=== PATIENT | female | born 1925 | race Caucasian/White ===

== ENCOUNTER 2016-10-11 16:47 | Emergency (ER) | payer OTHER, BC ==
[2016-10-11 17:08] VITALS: TEMP 98.4; BMI 27.4
--- NOTE | 2016-10-11 17:10 | PDOC ---
History of Present Illness - General History Source: Patient, Alf Records - History of Present Illness Initial Comments: 10/11/16 17:23 The patient is a 89 year old female, from assisted living, with a significant past medical history of dementia, DM, HTN, frequent UTIs who presents to the ED s/p fall. As per usp, the patient was walking with a rolling walker and fell backwards on the right side of back of her head. Denies loss of consciousness. Patient now reports a bump to the right side of the back of her head with a slight headache. Denies nausea or vomiting. Denies vision changes. Denies any other symptoms. <Abeba Queen - Last Filed: 10/11/16 18:51> <Nickolas Perla - Last Filed: 10/11/16 18:55> - General Chief Complaint: Injury Stated Complaint: FALL Past History <Abeba Queen - Last Filed: 10/11/16 18:51> - Past Medical History Anemia: No Asthma: No Cancer: Yes (left breast) Cardiac Disorders: Yes (bypass sx) CVA: No COPD: No CHF: No Dementia: No Diabetes: Yes GI Disorders: No Disorders: No HTN: Yes Hypercholesterolemia: Yes Liver Disease: No Seizures: No Thyroid Disease: No - Surgical History Abdominal Surgery: No Appendectomy: No Cardiac Surgery: Yes (BYPASS) Cholecystectomy: No Lung Surgery: No Neurologic Surgery: No Orthopedic Surgery: Yes (L KNEE REPLACEMENT) - Psycho/Social/Smoking Cessation Hx Anxiety: No Suicidal Ideation: No Smoking Status: No Smoking History: Never smoked Have you smoked in the past 12 months: No Number of Cigarettes Smoked Daily: 0 Information on smoking cessation initiated: No Hx Alcohol Use: No Drug/Substance Use Hx: No Substance Use Type: None Hx Substance Use Treatment: No <Nickolas Perla - Last Filed: 10/11/16 18:55> - Past Medical History Allergies/Adverse Reactions: Allergies Allergy/AdvReac Type Severity Reaction Status Date / Time No Known Drug Allergies Allergy Verified 10/11/16 17:00 Home Medications: Ambulatory Orders Aspirin [ASA -] 81 mg PO DAILY 01/15/15 Atorvastatin Ca [Lipitor -] 20 mg PO HS 01/15/15 Calcium Carbonate [Calcium] 250 mg PO BID 01/15/15 Escitalopram Oxalate [Lexapro -] 10 mg PO DAILY 01/15/15 Hydralazine HCl 100 mg PO BID 01/15/15 Insulin (Novolog) [Novolog -] 5 units SQ TID 01/15/15 Nebivolol HCl [Bystolic] 5 mg PO DAILY 01/15/15 Tamoxifen Citrate 20 mg PO DAILY 01/15/15 Furosemide 20 mg PO DAILY 04/26/15 Hydroxyzine HCl [Atarax -] 12.5 mg PO BID 04/26/15 Acetaminophen [Tylenol] 650 mg PO DAILY PRN 10/11/16 B Complex with Vitamin C [Super B Complex-Vitamin C] 1 each PO DAILY 10/11/16 Buspirone HCl [Buspar -] 5 mg PO BID 10/11/16 Divalproex [Depakote -] 250 mg PO BID 10/11/16 Ergocalciferol (Vitamin D2) [Vitamin D2] 50,000 unit PO WEEKLY 10/11/16 Guaifenesin [Robafen] 10 ml PO Q4H PRN 10/11/16 Insulin Glargine,Hum.rec.anlog [Toujeo Solostar] 30 unit SQ AM 10/11/16 Review of Systems - Review of Systems Able to Perform ROS?: Yes Comments:: 10/11/16 17:24 GENERAL/CONSTITUTIONAL: + fall. No fever or chills. No weakness. HEAD, EYES, EARS, NOSE AND THROAT: + hematoma on head. No change in vision. No ear pain or discharge. No sore throat. CARDIOVASCULAR: No chest pain or shortness of breath. RESPIRATORY: No cough, wheezing, or hemoptysis. GASTROINTESTINAL: No nausea, vomiting, diarrhea or constipation. GENITOURINARY: No dysuria, frequency, or change in urination. MUSCULOSKELETAL: No joint or muscle swelling or pain. No neck or back pain. SKIN: No rash NEUROLOGIC:+ headache No vertigo, loss of consciousness, or change in strength/ sensation. ENDOCRINE: No increased thirst. No abnormal weight change. HEMATOLOGIC/LYMPHATIC: No anemia, easy bleeding, or history of blood clots. ALLERGIC/IMMUNOLOGIC: No hives or skin allergy. All Other Systems: Reviewed and Negative <Abeba Queen - Last Filed: 10/11/16 18:51> *Physical Exam - Vital Signs Last Vital Signs Temp Pulse Resp BP Pulse Ox 98.4 F 50 L 20 153/66 99 10/11/16 17:01 10/11/16 17:01 10/11/16 17:01 10/11/16 17:01 10/11/16 17:01 - Physical Exam Comments: 10/11/16 17:39 GENERAL: Awake, alert, and fully oriented, in no acute distress HEAD:+ hematoma on the right side of the occipital area EYES: PERRLA, EOMI, sclera anicteric, conjunctiva clear ENT: Auricles normal inspection, hearing grossly normal, nares patent, oropharynx clear without exudates. Moist mucosa NECK: Normal ROM, supple, no lymphadenopathy, JVD, or masses LUNGS: Breath sounds equal, clear to auscultation bilaterally. No wheezes, and no crackles HEART: Regular rate and rhythm, normal S1 and S2, no murmurs, rubs or gallops ABDOMEN: Soft, nontender, normoactive bowel sounds. No guarding, no rebound. No masses EXTREMITIES: Normal range of motion, no edema. No clubbing or cyanosis. No cords, erythema, or tenderness NEUROLOGICAL: Cranial nerves II through XII grossly intact. Normal speech, normal gait SKIN: Warm, Dry, normal turgor, no rashes or lesions noted. <Abeba Queen - Last Filed: 10/11/16 18:51> - Vital Signs Last Vital Signs Temp Pulse Resp BP Pulse Ox 98.4 F 50 L 20 153/66 99 10/11/16 17:01 10/11/16 17:01 10/11/16 17:01 10/11/16 17:01 10/11/16 17:01 <Nickolas Perla - Last Filed: 10/11/16 18:55> ED Treatment Course - RADIOLOGY Radiograph Interpretation: 10/11/16 18:52 EXAM: CT HEAD WITHOUT CONTRAST No acute brain parenchymal abnormality. No hemorrhage, mass or acute territorial infarct. Atrophy and chronic small vessel ischemic changes. Hematoma right parieto-occipital scalp. No skull fracture. Clear visualized paranasal sinuses. Visualized mastoid air cells clear. Reported by: Imaging contact worker lithography, Lindy Vo M.D <Abeba Quene - Last Filed: 10/11/16 18:51> *DC/Admit/Observation/Transfer - Attestations Scribe Attestion: 03/19/17 17:24 Documentation prepared by Abeba Queen, acting as medical chief technician for Nickolas Perla MD <Abeba Queen - Last Filed: 10/11/16 18:51> - Discharge Dispostion Admit: No - Attestations Physician Attestion: 10/11/16 17:10 I, Dr. Nickolas Perla, attest that this document has been prepared under my direction and personally reviewed by me in its entirety. I further attest, that it accurately reflects all work, treatment, procedures and medical decision -making performed by me. <Nickolas Perla - Last Filed: 10/11/16 18:55> Diagnosis at time of Disposition: Hematoma of scalp Qualifiers: Encounter type: initial encounter Qualified Code(s): S00.03XA - Contusion of scalp, initial encounter Accident due to mechanical fall without injury Qualifiers: Encounter type: initial encounter Qualified Code(s): W19.XXXA - Unspecified fall, initial encounter - Discharge Dispostion Disposition: HOME Condition at time of disposition: Good - Referrals Referrals: Elina Arreaga [Primary Care Provider] - - Patient Instructions Printed Discharge Instructions: DI for Closed Head Injury Additional Instructions: Jessica- Your CT is great. Tylenol is best for pain. An icepack will help too. Follow up with your doctor next week. Return to us if worse or new symptoms occur. Best- Dr. Nickolas Perla
[2016-10-11 20:59] VITALS: BP 151/64; PULSE 80
== END 2016-10-11 20:58 | disposition home or self-care (01) ==
LOC: JER 16:47
DX: S00.03XA Contusion of scalp, initial encounter (principal); I25.10 Atherosclerotic heart disease of native coronary artery without angina pectoris; I10 Essential (primary) hypertension; Z95.1 Presence of aortocoronary bypass graft; E11.9 Type 2 diabetes mellitus without complications; Z79.4 Long term (current) use of insulin; E78.00 Pure hypercholesterolemia, unspecified; W18.39XA Other fall on same level, initial encounter; Y93.01 Activity, walking, marching and hiking; Y92.128 Other place in nursing home as the place of occurrence of the external cause
CPT/HCPCS: 70450-TC; 99282-25

== ENCOUNTER 2017-02-11 08:36 | Emergency (ER) | payer OTHER, BC ==
[2017-02-11 09:22] VITALS: BMI 29.2
--- NOTE | 2017-02-11 09:35 | PDOC ---
History of Present Illness - General Chief Complaint: Injury Stated Complaint: FALL Time Seen by Provider: 02/11/17 08:50 - History of Present Illness Initial Comments: 02/11/17 10:20 Ms. Reid is an 89 yo Female with a significant past medical history of Angina with bypass, HTN, hyperlipidemia, DMII, Chronic UTI, who presents to the emergency department from care facility after unwitnessed fall. The patient denies chest pain, shortness of breath, headache and dizziness. Denies fever, chills, nausea, vomit, diarrhea and constipation. Denies dysuria, frequency, urgency and hematuria. Allergies: NKDA Past surgical history: Cardiac bypass for angina Social history: Denies EtOH / smoking PMD - Elina Androne 02/11/17 11:23 02/11/17 12:23 02/11/17 12:27 02/11/17 12:31 Past History - Past Medical History Allergies/Adverse Reactions: Allergies Allergy/AdvReac Type Severity Reaction Status Date / Time No Known Drug Allergies Allergy Verified 02/11/17 09:00 Home Medications: Ambulatory Orders Aspirin [ASA -] 81 mg PO DAILY 01/15/15 Atorvastatin Ca [Lipitor -] 20 mg PO HS 01/15/15 Calcium Carbonate [Calcium] 250 mg PO BID 01/15/15 Escitalopram Oxalate [Lexapro -] 10 mg PO DAILY 01/15/15 Hydralazine HCl 100 mg PO BID 01/15/15 Insulin (Novolog) [Novolog -] 5 units SQ TID 01/15/15 Nebivolol HCl [Bystolic] 5 mg PO DAILY 01/15/15 Tamoxifen Citrate 20 mg PO DAILY 01/15/15 Furosemide 20 mg PO DAILY 04/26/15 Hydroxyzine HCl [Atarax -] 12.5 mg PO BID 04/26/15 Acetaminophen [Tylenol] 650 mg PO DAILY PRN 10/11/16 B Complex with Vitamin C [Super B Complex-Vitamin C] 1 each PO DAILY 10/11/16 Buspirone HCl [Buspar -] 5 mg PO BID 10/11/16 Divalproex [Depakote -] 250 mg PO BID 10/11/16 Ergocalciferol (Vitamin D2) [Vitamin D2] 50,000 unit PO WEEKLY 10/11/16 Guaifenesin [Robafen] 10 ml PO Q4H PRN 10/11/16 Insulin Glargine,Hum.rec.anlog [Parker Rodriguez] 30 unit SQ AM 10/11/16 Anemia: No Asthma: No Cancer: Yes (left breast) Cardiac Disorders: Yes (bypass sx) CVA: No COPD: No CHF: No Dementia: No Diabetes: Yes GI Disorders: No Disorders: No HTN: Yes Hypercholesterolemia: Yes Liver Disease: No Seizures: No Thyroid Disease: No - Surgical History Abdominal Surgery: No Appendectomy: No Cardiac Surgery: Yes (BYPASS) Cholecystectomy: No Lung Surgery: No Neurologic Surgery: No Orthopedic Surgery: Yes (L KNEE REPLACEMENT) - Psycho/Social/Smoking Cessation Hx Anxiety: No Suicidal Ideation: No Smoking Status: No Smoking History: Never smoked Have you smoked in the past 12 months: No Number of Cigarettes Smoked Daily: 0 Hx Alcohol Use: No Drug/Substance Use Hx: No Substance Use Type: None Hx Substance Use Treatment: No Review of Systems - Review of Systems Comments:: 02/11/17 10:21 GENERAL/CONSTITUTIONAL: +Mildly confused at baseline (per son). No fever or chills. No weakness. HEAD, EYES, EARS, NOSE AND THROAT: +Pain to back of head bilaterally and neck. No change in vision. No ear pain or discharge. No sore throat. CARDIOVASCULAR: No chest pain or shortness of breath RESPIRATORY: No cough, wheezing, or hemoptysis. GASTROINTESTINAL: No nausea, vomiting, diarrhea or constipation. GENITOURINARY: No dysuria, frequency, or change in urination. MUSCULOSKELETAL: No joint or muscle swelling or pain. No neck or back pain. SKIN: No rash NEUROLOGIC: + headache, no vertigo, loss of consciousness, or change in strength /sensation. ENDOCRINE: No increased thirst. No abnormal weight change HEMATOLOGIC/LYMPHATIC: No anemia, easy bleeding, or history of blood clots. ALLERGIC/IMMUNOLOGIC: No hives or skin allergy. 02/11/17 12:27 *Physical Exam - Physical Exam Comments: 02/11/17 10:21 GENERAL: +Mildly obtunded. Reported to be at baseline by son. Awake, alert, and fully oriented, in no acute distress HEAD: +Some tenderness at back of head to palpation. No signs of trauma, normocephalic, atraumatic EYES: PERRLA, EOMI, sclera anicteric, conjunctiva clear ENT: Auricles normal inspection, hearing grossly normal, nares patent, oropharynx clear without exudates. Moist mucosa NECK: +Tender to palpation, Normal ROM, supple, no lymphadenopathy, JVD, or masses LUNGS: No distress, speaks full sentences, clear to auscultation bilaterally HEART: Regular rate and rhythm, normal S1 and S2, no murmurs, rubs or gallops, peripheral pulses normal and equal bilaterally. ABDOMEN: Soft, nontender, normoactive bowel sounds. No guarding, no rebound. No masses EXTREMITIES: Normal inspection, Normal range of motion, no edema. No clubbing or cyanosis. NEUROLOGICAL: Cranial nerves II through XII grossly intact. Normal speech, normal gait, no focal sensorimotor deficits SKIN: Warm, Dry, normal turgor, no rashes or lesions noted. 02/11/17 12:29 ED Treatment Course - LABORATORY CBC & Chemistry Diagram: 02/11/17 11:03 02/11/17 11:03 Medical Decision Making - Medical Decision Making 02/11/17 12:31 Ms. Reid presented to ER from care facility after she was found down by staff. She reports pain to back of head and neck. Obtunded but said to be at baseline by son. Ordered complete cardiac workup as fall was not witnessed, and Head/Neck CT. CT read: "Acute fracture involving the left superior articular facet of C2, left pars interarticularis, body of C2 with disruption of posterior cortex. Intact bony surface of the left transverse foramen. Fracture of the right lamina of C2 with mild displacement is seen. The predental dental space space is not widened. Intact odontoid process. Calcified transverse ligament. No subluxation is seen. Normal spinolaminar line. Symmetrical articulation of atlantoaxial and occipito atlantal joints. Prominent posterior degenerative osteophytes at C5-C6 causing moderately severe central spinal canal stenosis. Multilevel chronic degenerative discogenic disease" Consulted Neurosurgery at [facility], will transfer ER to ER for eval and surgery. Dr. Jordan accepted, Neurosurgery Dr. Ephraim Mena. 02/11/17 12:38 02/11/17 12:52 *DC/Admit/Observation/Transfer Diagnosis at time of Disposition: Fx C2 vertebra-closed Qualifiers: Encounter type: initial encounter Fracture morphology: unspecified fracture morphology Fracture alignment: displaced Qualified Code(s): S12.100A - Unspecified displaced fracture of second cervical vertebra, initial encounter for closed fracture - Discharge Dispostion Disposition: TRANSFER ACUTE CARE/OTHER HOSP Condition at time of disposition: Stable - Attestations Physician Attestion: I, Dr. Chapincito Avina, attest that this document has been prepared under my direction and personally reviewed by me in its entirety. I further attest, that it accurately reflects all work, treatment, procedures and medical decision -making performed by me.
--- NOTE | 2017-02-11 10:57 | PDOC ---
Attending Attestation - Resident Resident Name: Chapincito Avina - HPI HPI: 02/11/17 10:52 Pt presents to the ED after unwitnessed fall. Patient has a history of dementia and is confused at baseline. Unclear whether she had a mechanical trip and fall or syncopized. multiple risk factors for cardiovascular disease. - Physicial Exam PE: 02/11/17 10:54 Alert, NAD, answering questions but confused. + ecchymosis to occipital area, otherwise appears well. - Medical Decision Making 02/11/17 10:55 Pt presents to the ED after unwitnessed fall. Will check CT head and C spine to rule out intracranial or cervical spinal injury. EKG shows no arrythmia or ischemia. Will check labs and cardiac enzymes, admit for syncope work up.
[2017-02-11 11:30] LABS: MCH 33.7 pg (25.7-33.7); MEAN PLT VOLUME 8.2 fl (7.5-11.1); PLATELET COUNT 191 K/MM3 (134-434); RDW 13.7 % (11.6-15.6); WHITE BLOOD COUNT 10.5 K/mm3 (4.0-10.0)
[2017-02-11 11:33] LABS: URINE APPEARANCE SLCLOUDY; URINE BILIRUBIN NEGATIVE (NEGATIVE); URINE BLOOD NEGATIVE (NEGATIVE); URINE COLOR LTYELLOW; URINE GLUCOSE (UA) NEGATIVE (NEGATIVE); URINE KETONE NEGATIVE (NEGATIVE); URINE LEUK ESTERASE NEGATIVE (NEGATIVE); URINE NITRITE NEGATIVE (NEGATIVE); URINE PROTEIN NEGATIVE (NEGATIVE); URINE UROBILINOGEN NEGATIVE mg/dL (0.2-1.0)
[2017-02-11 12:59] VITALS: TEMP 98.4
[2017-02-11 13:08] VITALS: BP 109/52; PULSE 58
--- NOTE | 2017-02-11 16:29 | EKG ---
Test Reason : Blood Pressure : / mmHG Vent. Rate : 054 BPM Atrial Rate : 054 BPM P-R Int : 142 ms QRS Dur : 118 ms QT Int : 492 ms P-R-T Axes : 054 -62 047 degrees QTc Int : 466 ms POOR DATA QUALITY, INTERPRETATION MAY BE ADVERSELY AFFECTED SINUS BRADYCARDIA RIGHT BUNDLE BRANCH BLOCK LEFT ANTERIOR FASCICULAR BLOCK BIFASCICULAR BLOCK MODERATE VOLTAGE CRITERIA FOR LVH, MAY BE NORMAL VARIANT ABNORMAL ECG WHEN COMPARED WITH ECG OF 26-APR-2015 01:44, RIGHT BUNDLE BRANCH BLOCK IS NOW PRESENT Confirmed by GIOVANI MARQUEZ MD ([id number]) on 02/11/2017 4:28:54 PM Referred By: Confirmed By:GIOVANI MARQUEZ MD
== END 2017-02-11 13:08 | disposition short-term general hospital (02) ==
LOC: JER 08:36
DX: S12.190A Other displaced fracture of second cervical vertebra, initial encounter for closed fracture (principal); W18.39XA Other fall on same level, initial encounter; Y93.89 Activity, other specified; Y92.129 Unspecified place in nursing home as the place of occurrence of the external cause; Z95.1 Presence of aortocoronary bypass graft; I10 Essential (primary) hypertension; E78.00 Pure hypercholesterolemia, unspecified; E11.9 Type 2 diabetes mellitus without complications; Z79.4 Long term (current) use of insulin; Z85.3 Personal history of malignant neoplasm of breast
CPT/HCPCS: 36415; 70450-TC; 72125-TC; 81003; 85027; 93005; 93010; 99283-25

== ENCOUNTER 2017-03-17 14:33 | Inpatient (IN) | payer OTHER, BC ==
--- NOTE | 2017-03-17 14:39 | PDOC ---
History of Present Illness - General Stated Complaint: ABD PAIN Time Seen by Provider: 03/17/17 14:38 - History of Present Illness Initial Comments: She is an 89 year old Female with PMH of [place] (8-0 years prior with CABG x2), HTN , hyperlipidemia, DMII, Chronic UTIs, hearing deficit, sight defecit, and recent neck fracture [facility] for decreased appetite, nausea, and vomiting of two days duration in the setting of Valcyclovir initiation for shingles. Both the patient and the daughter at bedside admit that her rash on her back and her stomach are improving in terms of appearance and symptomatology. She saw both her PCP, Kaye George, and her neurologist, Dr. Espinosa, who all feel she needs to be admitted for IV antiviral therapy for her inability to tolerate oral Valtrex. She is incontinent of urine at baseline. The family and patient are also concerned about the follow up for her neck fracture (currently in a c-spine collar) because they had no concrete ortho/ neuro follow up and their care at [facility]. They would like to take the patietn back to her [facility] living facility. Denies fevers, chills, chest pain, palpitations, diarrhea, urinary symptoms, or other sick symptoms. 03/17/17 14:44 Past History - Past Medical History Allergies/Adverse Reactions: Allergies Allergy/AdvReac Type Severity Reaction Status Date / Time No Known Drug Allergies Allergy Verified 02/11/17 09:00 Home Medications: Ambulatory Orders Aspirin [ASA -] 81 mg PO DAILY 01/15/15 Atorvastatin Ca [Lipitor -] 20 mg PO HS 01/15/15 Calcium Carbonate [Calcium] 250 mg PO BID 01/15/15 Escitalopram Oxalate [Lexapro -] 10 mg PO DAILY 01/15/15 Hydralazine HCl 100 mg PO BID 01/15/15 Insulin (Novolog) [Novolog -] 5 units SQ TID 01/15/15 Nebivolol HCl [Bystolic] 5 mg PO DAILY 01/15/15 Tamoxifen Citrate 20 mg PO DAILY 01/15/15 Furosemide 20 mg PO DAILY 04/26/15 Hydroxyzine HCl [Atarax -] 12.5 mg PO BID 04/26/15 Acetaminophen [Tylenol] 650 mg PO DAILY PRN 03/19/17 B Complex with Vitamin C [Super B Complex-Vitamin C] 1 each PO DAILY 10/11/16 Buspirone HCl [Buspar -] 5 mg PO BID 10/11/16 Divalproex [Depakote -] 250 mg PO BID 10/11/16 Ergocalciferol (Vitamin D2) [Vitamin D2] 50,000 unit PO WEEKLY 10/11/16 Guaifenesin [Robafen] 10 ml PO Q4H PRN 10/11/16 Insulin Glargine,Hum.rec.anlog [Toujeo Solostar] 30 unit SQ AM 10/11/16 Anemia: No Asthma: No Cancer: Yes (left breast) Cardiac Disorders: Yes (bypass sx) CVA: No COPD: No CHF: No Dementia: No Diabetes: Yes GI Disorders: No Disorders: No HTN: Yes Hypercholesterolemia: Yes Liver Disease: No Seizures: No Thyroid Disease: No - Surgical History Abdominal Surgery: No Appendectomy: No Cardiac Surgery: Yes (BYPASS) Cholecystectomy: No Lung Surgery: No Neurologic Surgery: No Orthopedic Surgery: Yes (L KNEE REPLACEMENT) - Psycho/Social/Smoking Cessation Hx Anxiety: No Suicidal Ideation: No Smoking Status: No Smoking History: Never smoked Have you smoked in the past 12 months: No Number of Cigarettes Smoked Daily: 0 Hx Alcohol Use: No Drug/Substance Use Hx: No Substance Use Type: None Hx Substance Use Treatment: No Review of Systems - Review of Systems Constitutional: No: Chills, Fever, Loss of Appetite, Night Sweats HEENTM: No: Blurred Vision, Recent change in vision Respiratory: No: Cough, Shortness of Breath Cardiac (ROS): No: Chest Pain, Edema ABD/GI: Yes: Nausea, Vomiting. No: Diarrhea : Yes: Frequency, Incontinence. No: Dysuria Integumentary: Yes: Change in Color, Erythema, Lesions Neurological: No: Headache *Physical Exam - Physical Exam General Appearance: Yes: Nourished, Appropriately Dressed. No: Apparent Distress HEENT: positive: EOMI, MERY, Normal Voice, Pharynx Normal, Other (Mucous membranes moist) Neck: positive: Trachea midline, Normal Thyroid, Supple, Other (Patient in c- collar but removed fro c-spine exam.). negative: Tender, Rigid Respiratory/Chest: positive: Lungs Clear, Normal Breath Sounds. negative: Chest Tender, Respiratory Distress Cardiovascular: positive: Regular Rhythm, Regular Rate. negative: S1, S2, Edema , Murmur Gastrointestinal/Abdominal: positive: Normal Bowel Sounds, Other (healing vesiclar rash across right side of stomach not crossing the midline.). negative : Tender Musculoskeletal: positive: Other (Healing vesicular lesions across right side of lower thoracic back not crossing midline.). negative: Normal Inspection Extremity: positive: Normal Inspection. negative: Tender, Coldness Integumentary: positive: Normal Color, Dry, Warm Neurologic: positive: Alert, Normal Mood/Affect, Motor Strength 5/5 Medical Decision Making - Medical Decision Making 89 year old female with significant cardiac history presenting for inability to tolerate PO Valtrex for 2 days of shingles. VSS but per her PCP, Dr. George we will admit the patient given her age and comorbidities for IV antibiotics. She also needs follow up for recent her neck fracture. 03/17/17 15:47 *DC/Admit/Observation/Transfer Diagnosis at time of Disposition: Zoster, Nausea & vomiting - Discharge Dispostion Condition at time of disposition: Stable Admit: Yes - Attestations Physician Attestion: Attested by Dr. Hernandez @ 03/17/17 15:53 03/17/17 15:57
[2017-03-17 15:33] VITALS: BMI 28.1
[2017-03-17] MEDS ORDERED: ACYCLOVIR 500 MG (50MG/ML) VIAL IVPUSH ONE (16:21)
[2017-03-17 16:31] LABS: BASOPHIL 0.4 % (0-2.0); EOSINOPHIL 1.9 % (0-4.5); MCH 34.4 pg (25.7-33.7); MCHC 33.9 g/dl (32.0-36.0); MEAN CELL VOLUME 101.5 fl (80-96); MEAN PLT VOLUME 8.2 fl (7.5-11.1); NEUTROPHILS 62.2 % (42.8-82.8); PLATELET COUNT 176 K/MM3 (134-434); RDW 13.8 % (11.6-15.6); WHITE BLOOD COUNT 5.7 K/mm3 (4.0-10.0)
[2017-03-17 16:52] LABS: ALBUMIN 2.6 g/dl (3.4-5.0); ANION GAP 8 (8-16); BILIRUBIN,TOTAL 0.4 mg/dL (0.2-1.0); CALCIUM 8.3 mg/dL (8.5-10.1); CO2 28 mmol/L (21-32); CREATININE 1.3 mg/dL (0.55-1.02); GLUCOSE,RANDOM 177 mg/dL (74-106); MAGNESIUM 2.4 mg/dL (1.8-2.4); PHOSPHOROUS 3.5 mg/dL (2.5-4.9); SGOT/AST 19 U/L (15-37); SGPT/ALT 18 U/L (12-78); TOT PROT 6.1 g/dl (6.4-8.2)
[2017-03-17 16:53] LABS: ALK PHOS 54 U/L (45-117)
[2017-03-17] MEDS ORDERED: DEXTROSE 5% IVPB SCH (17:15)
[2017-03-17] MEDS ORDERED: ACYCLOVIR IVPB SCH (17:15)
[2017-03-17] MEDS ORDERED: WATER IVPB SCH (17:15)
--- NOTE | 2017-03-17 17:18 | PDOC ---
Attending Attestation - Resident Resident Name: Anusha Hernandez - ED Attending Attestation I have performed the following: I have examined & evaluated the patient, The case was reviewed & discussed with the resident, I agree w/resident's findings & plan, Exceptions are as noted - HPI HPI: 03/17/17 17:15 89-year-old female with multiple comorbid issues. [facility] for decreased appetite, nausea and vomiting after recently being diagnosed with herpes zoster. - Physicial Exam PE: 03/17/17 17:16 Patient is awake and alert, afebrile, nontoxic appearing. Cervical collar is in place; HEENT: Within normal limits; Lungs: CTA; heart: rrr abdomen: Soft, nontender, nondistended; +numerous vesicular and encrusted lesions on erythematous base to the right upper quadrant and the epigastrium, extending posteriorly, consistent with herpes zoster; - Medical Decision Making 03/17/17 17:18 89-year-old female with multiple comorbidities who presents to the ER with generalized weakness, malaise, nausea and several episodes of nonbloody nonbilious vomiting after being diagnosed with herpes zoster and started on valacyclovir. Patient is unable to tolerate antiviral medications at this time and will require admission for IV acyclovir. We'll consult ID, will admit.
[2017-03-17] MEDS: ACYCLOVIR INJECTION 700 MG in DEXTROSE 5%-WATER - 100 ML IVPB SCH (17:51)
[2017-03-17] MEDS ORDERED: hydrOXYzine HCL 25 MG TABLET (FP) PO PRN (21:17)
[2017-03-17] MEDS ORDERED: INSULIN (NOVOLOG) ASPART 100 UNITS/ML 10ML VIAL SQ SCH (22:00)
[2017-03-17] MEDS: SODIUM CHLORIDE 1,000 ML IV SCH (22:22)
[2017-03-17] MEDS: DIVALPROEX SODIUM 250 MG TABLET E.C. (FP) PO SCH (22:49)
[2017-03-17] MEDS: hydrALAZINE HCL 50 MG TABLET (FP) PO SCH (22:49)
[2017-03-17] MEDS: CALCIUM (OYSTER SHELL) 500 MG TABLET (FP) PO SCH (22:49)
[2017-03-17] MEDS: ATORVASTATIN CA 20 MG TABLET (FP) PO SCH (22:50)
[2017-03-17] MEDS: INSULIN SLIDING SCALE (NOVOLOG) 1 VIAL SQ SCH (22:50)
[2017-03-17] MEDS: busPIRone HCL 5 MG TABLET PO SCH (22:51)
[2017-03-17] MEDS: HEPARIN NA (PORCINE) 5,000 UNITS/ML 1ML VIAL SQ SCH (22:51)
[2017-03-18] MEDS: ACYCLOVIR INJECTION 700 MG in DEXTROSE 5%-WATER - 100 ML IVPB SCH (05:57)
[2017-03-18] MEDS: INSULIN DETEMIR 100 UNITS/ML MDV SQ SCH (06:16)
[2017-03-18] MEDS: INSULIN SLIDING SCALE (NOVOLOG) 1 VIAL SQ SCH ×4 (06:17→22:39)
[2017-03-18 07:11] LABS: BASOPHIL 0.8 % (0-2.0); MCH 34.5 pg (25.7-33.7); MCHC 34.2 g/dl (32.0-36.0); MEAN PLT VOLUME 7.9 fl (7.5-11.1); NEUTROPHILS 60.3 % (42.8-82.8); PLATELET COUNT 146 K/MM3 (134-434); RDW 13.5 % (11.6-15.6); WHITE BLOOD COUNT 4.5 K/mm3 (4.0-10.0)
[2017-03-18 07:20] LABS: ALBUMIN 2.5 g/dl (3.4-5.0); ANION GAP 7 (8-16); BILIRUBIN,TOTAL 0.5 mg/dL (0.2-1.0); CALCIUM 8.1 mg/dL (8.5-10.1); CO2 29 mmol/L (21-32); CREATININE 1.1 mg/dL (0.55-1.02); GLUCOSE,RANDOM 134 mg/dL (74-106); SGOT/AST 13 U/L (15-37); SGPT/ALT 14 U/L (12-78)
[2017-03-18 07:21] LABS: ALK PHOS 47 U/L (45-117); TOT PROT 5.6 g/dl (6.4-8.2)
[2017-03-18] MEDS ORDERED: INSULIN DETEMIR 100 UNITS/ML MDV SQ ONE (07:51)
[2017-03-18] MEDS ORDERED: INSULIN (NOVOLOG) ASPART 100 UNITS/ML 10ML VIAL ONE ×2 (07:52→12:06)
[2017-03-18] MEDS ORDERED: PT OWN MED DRAWER 7, Y5N ONE ×3 (09:07→23:13)
--- NOTE | 2017-03-18 09:07 | CON.NEURO ---
Consult Consult Specialty:: NEUROLOGY-EVELIA SAEZ - History of Present Illness Chief Complaint: Admitted for treatment of thoracic zoster History of Present Illness: She is an 89 year old lady with PMH of [place] (8-0 years prior with CABG x2), HTN, hyperlipidemia, DMII, Chronic UTIs, hearing deficit, sight defecit, dementiaand recent neck fracture presenting to to the emergency department from [facility] rehab for decreased appetite, nausea, and vomiting of two days duration in the setting of Valcyclovir initiation for shingles. Both the patient and the daughter at bedside admit that her rash on her back and her stomach are improving in terms of appearance and symptomatology. She saw both her PCP, Kaye George, and her neurologist, Dr. Cantor, who all feel she needs to be admitted for IV antiviral therapy for her inability to tolerate oral Valtrex. She is incontinent of urine at baseline. The family and patient are also concerned about the follow up for her neck fracture (currently in a c-spine collar) because they had no concrete ortho/ neuro follow up and their care at [facility]. They would like to take the patient back to her [place] assisted living facility. Denies fevers, chills, chest pain, palpitations, diarrhea, urinary symptoms, or other sick symptoms. I saw Ms. Reid day before yesterday in the office, the family brought her to me for a specific question of whether the hard collar she is in should be removed or not. She has had gait ataxia(likely increased tone in her legs as an association with her dementia) x 4 months at least, in 02/08 she fell at the NURSING HOME she was in at that time and suffered a C2 level fx- CT Cspine 02/11/17- acute fracture left sup. srticular facet of C2, left pars interarticularis and body of C2 with disruption of post. cortex. Intact bony surface of left transverse foramina, fx. of right lamina of C2 with mild displacement. She has been in a hard collar since with no other neurologic symptoms. Today reports she is well, denies neck pain/weakness/numbness. Denies pain in the roght thoracic region. - Past Medical History WEDDING COORDINATOR: Yes: Dementia Cardio/Vascular: Yes: CAD (s/p CABG), HTN, Hyperlipdemia - Past Surgical History Past Surgical History: Yes: CABG, Joint Replacement (Left Knee) - Alcohol/Substance Use Hx Alcohol Use: No - Smoking History Smoking history: Never smoked Have you smoked in the past 12 months: No Aproximately how many cigarettes per day: 0 Home Medications - Allergies Allergies/Adverse Reactions: Allergies Allergy/AdvReac Type Severity Reaction Status Date / Time No Known Drug Allergies Allergy Verified 03/17/17 15:33 - Home Medications Home Medications: Ambulatory Orders Aspirin [ASA -] 81 mg PO DAILY 01/15/15 Atorvastatin Ca [Lipitor -] 20 mg PO HS 01/15/15 Calcium Carbonate [Calcium] 250 mg PO BID 01/15/15 Escitalopram Oxalate [Lexapro -] 10 mg PO DAILY 01/15/15 Hydralazine HCl 100 mg PO BID 01/15/15 Insulin (Novolog) [Novolog -] 5 units SQ TID 01/15/15 Nebivolol HCl [Bystolic] 5 mg PO DAILY 01/15/15 Tamoxifen Citrate 20 mg PO DAILY 01/15/15 Furosemide 20 mg PO DAILY 04/26/15 Hydroxyzine HCl [Atarax -] 12.5 mg PO BID 04/26/15 Acetaminophen [Tylenol] 650 mg PO DAILY PRN 10/11/16 B Complex with Vitamin C [Super B Complex-Vitamin C] 1 each PO DAILY 10/11/16 Buspirone HCl [Buspar -] 5 mg PO BID 10/11/16 Divalproex [Depakote -] 250 mg PO BID 10/11/16 Ergocalciferol (Vitamin D2) [Vitamin D2] 50,000 unit PO WEEKLY 10/11/16 Insulin Glargine,Hum.rec.anlog [Toujeo Solostar] 30 unit SQ AM 10/11/16 Valacyclovir HCl [Valtrex] 1,000 mg PO TID 03/17/17 Physical Exam-Neuro Vital Signs: Vital Signs Temperature 98.2 F 03/18/17 06:06 Pulse Rate 59 L 03/18/17 06:06 Respiratory Rate 18 03/18/17 06:06 Blood Pressure 143/73 03/18/17 06:06 O2 Sat by Pulse Oximetry (%) 96 03/17/17 21:00 Labs: CBC, BMP 03/18/17 06:30 03/18/17 06:30 - Neuro Exam Level Of Consciousness: Yes: Alert, Oriented to Person Eyes: Yes: PERRL Speech: Garbled Dominant Hand: Right Mini Mental Exam: Awake, alert, at baseline MS due to dementia of disorientation , at times incoherent speech, impaired attention/concentration/memory Babinski: Present (Bilateral upgoing toes) Response to light touch: Normal Response to pain prick: Normal (Unable to test vib/position sense) Coordination: Normal: Finger to Nose (Normal F-N) Motor Strength: 4/5: Left Arm, Right Arm, Left Leg, Right Leg (She has increased tone in her legs more than arms) Gait: Deferred Assessment/Plan Pt. with recent C2 fx. now admitted for right thoracic dermatomal herpes zoster treatment with I/V acyclovir. There is no evidence of cord compression(her increased tone/incontinence predate the fx.). She is in a hard collar. Suggest 1) CT-Cspine,would request neurosurgery consult to clear Cspine for stability and ?? removal of hard collar. Would hold off on PT until spine cleared 2) Cont. rx. for zoster. 3) I ill update the family on the plan here. Thank you, Aba Milian MD
[2017-03-18] MEDS: TAMOXIFEN CITRATE 10 MG TABLET PO SCH (09:36)
[2017-03-18] MEDS: FUROSEMIDE 20 MG TABLET (FP) PO SCH (09:36)
[2017-03-18] MEDS: hydrALAZINE HCL 50 MG TABLET (FP) PO SCH ×2 (09:36→22:38)
[2017-03-18] MEDS: VITAMIN B COMPLEX W/C COMBO TABLET (FP) PO SCH (09:36)
[2017-03-18] MEDS: CALCIUM (OYSTER SHELL) 500 MG TABLET (FP) PO SCH ×2 (09:37→22:38)
[2017-03-18] MEDS: ASPIRIN 81 MG CHEWABLE TABLETS PO SCH (09:37)
[2017-03-18] MEDS: HEPARIN NA (PORCINE) 5,000 UNITS/ML 1ML VIAL SQ SCH ×2 (09:37→22:38)
[2017-03-18] MEDS: ESCITALOPRAM OXALATE 10 MG TABLET (FP) PO SCH (09:37)
[2017-03-18] MEDS: NEBIVOLOL 5 MG TABLET (FP) PO SCH (09:37)
[2017-03-18] MEDS: DIVALPROEX SODIUM 250 MG TABLET E.C. (FP) PO SCH ×2 (09:37→22:39)
[2017-03-18] MEDS: busPIRone HCL 5 MG TABLET PO SCH ×2 (09:37→22:40)
--- NOTE | 2017-03-18 10:55 | EKG ---
Test Reason : Blood Pressure : / mmHG Vent. Rate : 061 BPM Atrial Rate : 061 BPM P-R Int : 136 ms QRS Dur : 118 ms QT Int : 476 ms P-R-T Axes : 036 -56 077 degrees QTc Int : 479 ms SINUS RHYTHM WITH PREMATURE ATRIAL COMPLEXES LEFT ANTERIOR FASCICULAR BLOCK LEFT VENTRICULAR HYPERTROPHY WITH QRS WIDENING ABNORMAL ECG WHEN COMPARED WITH ECG OF 11-FEB-2017 11:03, PREMATURE ATRIAL COMPLEXES ARE NOW PRESENT RIGHT BUNDLE BRANCH BLOCK IS NO LONGER PRESENT Confirmed by GIOVANI MARQUEZ MD ([id number]) on 03/18/2017 10:54:49 AM Referred By: Confirmed By:GIOVANI MARQUEZ MD
--- NOTE | 2017-03-18 15:19 | HP ---
Admitting History and Physical - Primary Care Physician PCP: Elina Arreaga S - Admission Chief Complaint: R chest rash, N/V after po valtrex x 2 History of Present Illness: 89 year old Female with PMH of [place] CABG, HTN, hyperlipidemia, DM II, Chronic UTIs , hearing deficit, sight deficit, breast cancer and recent neck fracture after a fall in [place] presenting to to the emergency department from [facility] for decreased appetite, nausea, and vomiting of two days duration in the setting of Valcyclovir po initiation for shingles. Both the patient and the daughter at bedside admit that her rash on her back and her stomach are improving in terms of appearance and symptomatology. She saw me and her neurologist, Dr. Espinosa, and we feel she needs to be admitted for IV antiviral therapy for her inability to tolerate oral Valtrex. She is incontinent of urine at baseline. They would like to take the patient back to her [place] assisted living facility. Denies fevers, chills, chest pain, palpitations, diarrhea, urinary symptoms, or other sick symptoms. 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 Cardiovascular: Yes: CAD (s/p CABG), HTN, Hyperlipdemia Heme/Onc: Yes: Cancer (L breast) - Past Surgical History Past Surgical History: Yes: CABG, Joint Replacement (Left Knee) - Smoking History Smoking history: Never smoked Have you smoked in the past 12 months: No Aproximately how many cigarettes per day: 0 - Alcohol/Substance Use Hx Alcohol Use: No - Social History Usual Living Arrangement: Yes: Assisted Living ADL: Support Services History of Recent Travel: No Home Medications - Allergies Allergies/Adverse Reactions: Allergies Allergy/AdvReac Type Severity Reaction Status Date / Time No Known Drug Allergies Allergy Verified 03/17/17 15:33 - Home Medications Home Medications: Ambulatory Orders Aspirin [ASA -] 81 mg PO DAILY 01/15/15 Atorvastatin Ca [Lipitor -] 20 mg PO HS 01/15/15 Calcium Carbonate [Calcium] 250 mg PO BID 01/15/15 Escitalopram Oxalate [Lexapro -] 10 mg PO DAILY 01/15/15 Hydralazine HCl 100 mg PO BID 01/15/15 Insulin (Novolog) [Novolog -] 5 units SQ TID 01/15/15 Nebivolol HCl [Bystolic] 5 mg PO DAILY 01/15/15 Tamoxifen Citrate 20 mg PO DAILY 01/15/15 Furosemide 20 mg PO DAILY 04/26/15 Hydroxyzine HCl [Atarax -] 12.5 mg PO BID 04/26/15 Acetaminophen [Tylenol] 650 mg PO DAILY PRN 10/11/16 B Complex with Vitamin C [Super B Complex-Vitamin C] 1 each PO DAILY 10/11/16 Buspirone HCl [Buspar -] 5 mg PO BID 10/11/16 Divalproex [Depakote -] 250 mg PO BID 10/11/16 Ergocalciferol (Vitamin D2) [Vitamin D2] 50,000 unit PO WEEKLY 10/11/16 Insulin Glargine,Hum.rec.anlog [Toujuan r Solostar] 30 unit SQ AM 10/11/16 Valacyclovir HCl [Valtrex] 1,000 mg PO TID 03/17/17 Family Disease History - Family Disease History Family History: Unremarkable Review of Systems - Review of Systems Constitutional: denies: Chills, Fever, Lethargy Eyes: denies: Blurred Vision, Double Vision HENT: denies: Ear Pain, Epistaxis Neck: denies: Tenderness Cardiovascular: denies: Chest Pain, Shortness of Breath Respiratory: denies: Cough, SOB Gastrointestinal: reports: Nausea, Vomiting. denies: Abdominal Pain Genitourinary: denies: Dysuria, Flank Pain Musculoskeletal: denies: Back Pain, Joint Pain Integumentary: reports: Rash. denies: Bruising Neurological: reports: Confusion (at baseline). denies: Seizure, Syncope Hematology/Lymphatic: denies: Easily Bruised, Excessive Bleeding Psychiatric: denies: Anxiety, Depression, Suicidal Physical Examination Vital Signs: Vital Signs Temperature 98 F 03/18/17 13:27 Pulse Rate 55 L 03/18/17 13:27 Respiratory Rate 18 03/18/17 13:27 Blood Pressure 128/54 03/18/17 13:27 O2 Sat by Pulse Oximetry (%) 96 03/18/17 09:00 Constitutional: Yes: No Distress, Calm Eyes: Yes: Conjunctiva Clear HENT: Yes: Atraumatic Neck: Yes: Supple Cardiovascular: Yes: Regular Rate and Rhythm Respiratory: Yes: CTA Bilaterally Gastrointestinal: Yes: Soft. No: Distention, Tenderness Renal/: No: CVA Tenderness - Left, CVA Tenderness - Right Musculoskeletal: No: Joint Stiffness, Joint Swelling Extremities: No: Cold, Cool Edema: No Integumentary: Yes: Rash (under R breast vesicular c/w shingles). No: Bruising , Skin Tear Neurological: Yes: Alert. No: Oriented ...Motor Strength: WNL Psychiatric: Yes: Alert. No: Oriented, Agitated Labs: CBC, BMP 03/18/17 06:30 03/18/17 06:30 Imaging - Results Chest X-ray: Report Reviewed Other: Report Reviewed Assessment/Plan She is an 89 year old Female with PMH of [place] (8-0 years prior with CABG x2), HTN , hyperlipidemia, DMII, Chronic UTIs, hearing deficit, sight deficit, breast CA and recent neck fracture after a fall [place] presenting to to the emergency department from [facility] for decreased appetite, nausea, and vomiting of two days duration in the setting of Valcyclovir initiation for shingles. IV acyclovir IVF for renal protection ID eval; f/u labs neurology eval for Cspine fracture falls decubs DVT aspiration PFXd/w pt and son and daughter, d/w staff
--- NOTE | 2017-03-18 15:24 | PN ---
Progress Note (short form) - Note Progress Note: ID Consult dictated VZV R T7 dermatome Dehydration OBS IV acyclovir 350mg q8h Local wound care
--- NOTE | 2017-03-18 16:03 | CONS ---
INFECTIOUS DISEASE CONSULTATION DATE OF CONSULTATION: DATE OF DICTATION: 03/18/2017 HISTORY OF PRESENT ILLNESS: The patient is an 89-year-old female who was evaluated for herpes zoster. History was obtained from the chart as she cannot give a history secondary to dementia. She is a custodial resident. She has apparently been there for short-term rehabilitation status post fracture of the cervical spine. She developed shingles involving the right chest and back area, for which she was prescribed oral Valtrex. The patient had developed nausea, vomiting, and anorexia and was unable to tolerate the Valtrex. She was transferred to the hospital for IV acyclovir. She is confused. She offers no complaints. She denies any pain. No associated fever or chills. PAST MEDICAL HISTORY: Positive for dementia, coronary artery disease, myocardial infarction, hypertension, hyperlipidemia, diabetes mellitus. PAST SURGICAL HISTORY: Status post coronary artery bypass graft, breast CA, left total knee replacement. ALLERGIES: No known allergies. MEDICATIONS: Tylenol, heparin, Depakote, Lexapro, tamoxifen, BuSpar, Bystolic, Apresoline, Lipitor. SOCIAL HISTORY: [facility] resident for rehabilitation. No active tobacco or alcohol use. SYSTEMS REVIEW: Neurologic: Positive for dementia. Cardiac: Negative chest pain or palpitations. Respiratory: Negative cough or sputum production. Gastrointestinal: As per HPI. Genitourinary: Positive for recurrent urinary tract infections. LABORATORY DATA: White count 4.5, hematocrit 32.0, platelet count 146. BUN 36, creatinine 1.1. PHYSICAL EXAMINATION: General: She is awake but confused. Vital Signs: Temperature 98; blood pressure 128/54; pulse 55, regular; respirations 18 per minute. HEENT: Sclerae are anicteric. Heart: Sounds S1, S2. Lungs: Clear. Abdomen: Soft. No tenderness elicited. Extremities: Negative for edema. Right Chest: There is an erythematous rash present on the right anterior thorax extending to the flank area and posterior thorax at the level of dermatome T7. There are shallow-based ulcerations and pustular lesions. IMPRESSION: 1. Herpes zoster, right T7 dermatome. 2. Dehydration. 3. Dementia. Intravenous acyclovir 350 mg IV piggyback every 8 hours, IV fluid hydration, local wound care, contact precautions. Thank you for the kind referral. ILDA VILLAVICENCIO M.D. [id number]
[2017-03-18] MEDS: ACETAMINOPHEN 325 MG TABLET (FP) PO PRN (16:25)
[2017-03-18] MEDS: ACYCLOVIR INJECTION 350 MG in DEXTROSE 5%-WATER - 100 ML IVPB SCH (17:00)
[2017-03-18 19:49] LABS: URINE APPEARANCE SLCLOUDY; URINE BILIRUBIN NEGATIVE (NEGATIVE); URINE BLOOD NEGATIVE (NEGATIVE); URINE COLOR YELLOW; URINE GLUCOSE (UA) NEGATIVE (NEGATIVE); URINE KETONE NEGATIVE (NEGATIVE); URINE LEUK ESTERASE NEGATIVE (NEGATIVE); URINE NITRITE NEGATIVE (NEGATIVE); URINE PROTEIN NEGATIVE (NEGATIVE); URINE UROBILINOGEN NEGATIVE mg/dL (0.2-1.0)
[2017-03-18] MEDS ORDERED: DEXTROSE 50%-WATER 50 ML DISP.SYRIN ONE (20:50)
[2017-03-18] MEDS ORDERED: DEXTROSE 50%-WATER 50 ML DISP.SYRIN IVPUSH ONE (21:00)
[2017-03-18] MEDS: ATORVASTATIN CA 20 MG TABLET (FP) PO SCH (22:38)
[2017-03-18] MEDS: SODIUM CHLORIDE 1,000 ML IV SCH (22:41)
[2017-03-19] MEDS: ACYCLOVIR INJECTION 350 MG in DEXTROSE 5%-WATER - 100 ML IVPB SCH ×2 (05:44→18:40)
[2017-03-19] MEDS: INSULIN SLIDING SCALE (NOVOLOG) 1 VIAL SQ SCH ×4 (06:15→21:24)
[2017-03-19] MEDS: INSULIN DETEMIR 100 UNITS/ML MDV SQ SCH (06:15)
[2017-03-19 07:35] LABS: ANION GAP 4 (8-16); CALCIUM 7.9 mg/dL (8.5-10.1); CO2 30 mmol/L (21-32); CREATININE 0.9 mg/dL (0.55-1.02); GLUCOSE,RANDOM 90 mg/dL (74-106)
--- NOTE | 2017-03-19 09:28 | PN ---
Progress Note, Physician History of Present Illness: f/u: I saw and examined the pt at the bedside ; [place] w C2 fx has cervical collar; under tx for HZV ; No new complaints . PE: A & O to self no dysarthia or dysphasia No face asymmetria or gaze preference moves all exts , no blancas , spasticity sensory intact to LT/PP FN intact A/P: # right thoracic dermatomal herpes zoster treatment with I/V acyclovir. -on acyclovir # C2 fx post fall , no evidenec of cervical myelopathy ; waes collar . I recommend MRI -cervical to evaluate c-spine. Neurosx consult Health maintenance per primary team. Cira Purdy M.D. [phone] - Current Medication List Current Medications: Active Medications Acetaminophen (Tylenol -) 650 mg PO DAILY PRN PRN Reason: PAIN Last Admin: 03/18/17 16:25 Dose: 650 mg Aspirin (Asa -) 81 mg PO DAILY [facility] Last Admin: 03/18/17 09:37 Dose: 81 mg Atorvastatin Calcium (Lipitor -) 20 mg PO HS [facility] Last Admin: 03/18/17 22:38 Dose: 20 mg Buspirone HCl (Buspar -) 5 mg PO BID [facility] Last Admin: 03/18/17 22:40 Dose: 5 mg Calcium Carbonate (Os-Greg 500mg -) 250 mg PO BID [facility] Last Admin: 03/18/17 22:38 Dose: 250 mg Divalproex Sodium (Depakote -) 250 mg PO BID [facility] Last Admin: 03/18/17 22:39 Dose: 250 mg Ergocalciferol (Drisdol -) 50,000 unit PO Q7D@1000 [facility] Escitalopram Oxalate (Lexapro -) 10 mg PO DAILY [facility] Last Admin: 03/18/17 09:37 Dose: 10 mg Furosemide (Lasix -) 20 mg PO DAILY [facility] Last Admin: 03/18/17 09:36 Dose: 20 mg Heparin Sodium (Porcine) (Heparin -) 5,000 unit SQ BID [facility] Last Admin: 03/18/17 22:38 Dose: 5,000 unit Hydralazine HCl (Apresoline -) 100 mg PO BID [facility] Last Admin: 03/18/17 22:38 Dose: 100 mg Sodium Chloride (Normal Saline -) 1,000 mls @ 75 mls/hr IV ASDIR [facility] Last Admin: 03/18/17 22:41 Dose: 75 mls/hr Acyclovir 350 mg/ Dextrose 107 mls @ 100 mls/hr IVPB Q12H [facility] Last Admin: 03/19/17 05:44 Dose: 100 mls/hr Insulin Aspart (Novolog Vial Sliding Scale -) 1 vial SQ ACHS [facility] PRN Reason: Protocol Last Admin: 03/19/17 06:15 Dose: Not Given Insulin Detemir (Levemir Vial) 30 units SQ AM [facility] Last Admin: 03/19/17 06:15 Dose: Not Given Multivitamins (Total B With C -) 1 each PO DAILY [facility] Last Admin: 03/18/17 09:36 Dose: 1 each Nebivolol (Bystolic -) 5 mg PO DAILY [facility] Last Admin: 03/18/17 09:37 Dose: 5 mg Tamoxifen Citrate (Tamoxifen Citrate) 20 mg PO DAILY [facility] Last Admin: 03/18/17 09:36 Dose: 20 mg - Objective Vital Signs: Vital Signs Temperature 97.8 F 03/19/17 06:00 Pulse Rate 62 03/19/17 06:00 Respiratory Rate 18 03/19/17 06:00 Blood Pressure 136/61 03/19/17 06:00 O2 Sat by Pulse Oximetry (%) 96 03/18/17 21:00 Labs: CBC, BMP 03/18/17 06:30 03/19/17 06:30
[2017-03-19] MEDS: ACETAMINOPHEN 325 MG TABLET (FP) PO PRN (10:46)
[2017-03-19] MEDS: CALCIUM (OYSTER SHELL) 500 MG TABLET (FP) PO SCH ×2 (10:49→21:26)
[2017-03-19] MEDS: NEBIVOLOL 5 MG TABLET (FP) PO SCH (10:49)
[2017-03-19] MEDS: HEPARIN NA (PORCINE) 5,000 UNITS/ML 1ML VIAL SQ SCH ×2 (10:49→21:24)
[2017-03-19] MEDS: TAMOXIFEN CITRATE 10 MG TABLET PO SCH (10:49)
[2017-03-19] MEDS: DIVALPROEX SODIUM 250 MG TABLET E.C. (FP) PO SCH ×2 (10:49→21:25)
[2017-03-19] MEDS: ASPIRIN 81 MG CHEWABLE TABLETS PO SCH (10:49)
[2017-03-19] MEDS: ESCITALOPRAM OXALATE 10 MG TABLET (FP) PO SCH (10:49)
[2017-03-19] MEDS: busPIRone HCL 5 MG TABLET PO SCH ×2 (10:50→21:30)
[2017-03-19] MEDS: VITAMIN B COMPLEX W/C COMBO TABLET (FP) PO SCH (10:50)
[2017-03-19] MEDS: hydrALAZINE HCL 50 MG TABLET (FP) PO SCH ×2 (10:50→21:26)
[2017-03-19] MEDS: FUROSEMIDE 20 MG TABLET (FP) PO SCH (10:51)
--- NOTE | 2017-03-19 11:00 | PN ---
Progress Note, Physician Chief Complaint: in bed awake alert NAD son at bedside, no new c/o; afebrile neck collar on continuously (in ADira and in H) - Current Medication List Current Medications: Active Medications Acetaminophen (Tylenol -) 650 mg PO DAILY PRN PRN Reason: PAIN Last Admin: 03/19/17 10:46 Dose: 650 mg Aspirin (Asa -) 81 mg PO DAILY [facility] Last Admin: 03/19/17 10:49 Dose: 81 mg Atorvastatin Calcium (Lipitor -) 20 mg PO HS [facility] Last Admin: 03/18/17 22:38 Dose: 20 mg Buspirone HCl (Buspar -) 5 mg PO BID [facility] Last Admin: 03/19/17 10:50 Dose: 5 mg Calcium Carbonate (Os-Greg 500mg -) 250 mg PO BID [facility] Last Admin: 03/19/17 10:49 Dose: 250 mg Divalproex Sodium (Depakote -) 250 mg PO BID [facility] Last Admin: 03/19/17 10:49 Dose: 250 mg Ergocalciferol (Drisdol -) 50,000 unit PO Q7D@1000 [facility] Escitalopram Oxalate (Lexapro -) 10 mg PO DAILY [facility] Last Admin: 03/19/17 10:49 Dose: 10 mg Furosemide (Lasix -) 20 mg PO DAILY [facility] Last Admin: 03/19/17 10:51 Dose: 20 mg Heparin Sodium (Porcine) (Heparin -) 5,000 unit SQ BID [facility] Last Admin: 03/19/17 10:49 Dose: 5,000 unit Hydralazine HCl (Apresoline -) 100 mg PO BID [facility] Last Admin: 03/19/17 10:50 Dose: 100 mg Sodium Chloride (Normal Saline -) 1,000 mls @ 75 mls/hr IV ASDIR [facility] Last Admin: 03/18/17 22:41 Dose: 75 mls/hr Acyclovir 350 mg/ Dextrose 107 mls @ 100 mls/hr IVPB Q12H [facility] Last Admin: 03/19/17 05:44 Dose: 100 mls/hr Insulin Aspart (Novolog Vial Sliding Scale -) 1 vial SQ ACHS [facility] PRN Reason: Protocol Last Admin: 03/19/17 06:15 Dose: Not Given Insulin Detemir (Levemir Vial) 30 units SQ AM [facility] Last Admin: 03/19/17 06:15 Dose: Not Given Multivitamins (Total B With C -) 1 each PO DAILY [facility] Last Admin: 03/19/17 10:50 Dose: 1 each Nebivolol (Bystolic -) 5 mg PO DAILY [facility] Last Admin: 03/19/17 10:49 Dose: 5 mg Tamoxifen Citrate (Tamoxifen Citrate) 20 mg PO DAILY [facility] Last Admin: 03/19/17 10:49 Dose: 20 mg - Objective Vital Signs: Vital Signs Temperature 99.1 F 03/19/17 09:43 Pulse Rate 55 L 03/19/17 09:43 Respiratory Rate 19 03/19/17 09:43 Blood Pressure 159/69 03/19/17 09:43 O2 Sat by Pulse Oximetry (%) 96 03/18/17 21:00 Constitutional: Yes: No Distress, Calm Eyes: Yes: Conjunctiva Clear HENT: Yes: Atraumatic Neck: Yes: Other (neck collar on). No: Tenderness Cardiovascular: Yes: Regular Rate and Rhythm Respiratory: Yes: CTA Bilaterally Gastrointestinal: Yes: Soft. No: Distention, Tenderness Genitourinary: No: CVA Tenderness - Left, CVA Tenderness - Right Musculoskeletal: No: Joint Stiffness, Joint Swelling Extremities: No: Cold, Cool Edema: No Peripheral Pulses WNL: Yes Integumentary: Yes: Rash (R chest shinlges) Neurological: Yes: Alert. No: Oriented ...Motor Strength: WNL Psychiatric: Yes: Alert. No: Oriented, Agitated Labs: CBC, BMP 03/18/17 06:30 03/19/17 06:30 - ....Imaging Other: Report Reviewed Assessment/Plan She is an 89 year old Female with PMH of [place] (8-0 years prior with CABG x2), HTN , hyperlipidemia, DMII, Chronic UTIs, hearing deficit, sight deficit, breast CA and recent neck fracture after a fall [place] [facility], nausea, and vomiting of two days duration in the setting of Valcyclovir initiation for shingles. IV acyclovir IVF for renal protection ID eval; f/u labs neurology eval for Cspine fracture falls decubs DVT aspiration PFX d/w pt and son staff
--- NOTE | 2017-03-19 13:32 | PN ---
Progress Note, Physician History of Present Illness: Awaker but confused No complaints offered Afebrile - Current Medication List Current Medications: Active Medications Acetaminophen (Tylenol -) 650 mg PO DAILY PRN PRN Reason: PAIN Last Admin: 03/19/17 10:46 Dose: 650 mg Aspirin (Asa -) 81 mg PO DAILY [facility] Last Admin: 03/19/17 10:49 Dose: 81 mg Atorvastatin Calcium (Lipitor -) 20 mg PO HS [facility] Last Admin: 03/18/17 22:38 Dose: 20 mg Buspirone HCl (Buspar -) 5 mg PO BID [facility] Last Admin: 03/19/17 10:50 Dose: 5 mg Calcium Carbonate (Os-Greg 500mg -) 250 mg PO BID [facility] Last Admin: 03/19/17 10:49 Dose: 250 mg Divalproex Sodium (Depakote -) 250 mg PO BID [facility] Last Admin: 03/19/17 10:49 Dose: 250 mg Ergocalciferol (Drisdol -) 50,000 unit PO Q7D@1000 [facility] Escitalopram Oxalate (Lexapro -) 10 mg PO DAILY [facility] Last Admin: 03/19/17 10:49 Dose: 10 mg Furosemide (Lasix -) 20 mg PO DAILY [facility] Last Admin: 03/19/17 10:51 Dose: 20 mg Heparin Sodium (Porcine) (Heparin -) 5,000 unit SQ BID [facility] Last Admin: 03/19/17 10:49 Dose: 5,000 unit Hydralazine HCl (Apresoline -) 100 mg PO BID [facility] Last Admin: 03/19/17 10:50 Dose: 100 mg Sodium Chloride (Normal Saline -) 1,000 mls @ 75 mls/hr IV ASDIR [facility] Last Admin: 03/18/17 22:41 Dose: 75 mls/hr Acyclovir 350 mg/ Dextrose 107 mls @ 100 mls/hr IVPB Q12H [facility] Last Admin: 03/19/17 05:44 Dose: 100 mls/hr Insulin Aspart (Novolog Vial Sliding Scale -) 1 vial SQ ACHS [facility] PRN Reason: Protocol Last Admin: 03/19/17 12:03 Dose: Not Given Insulin Detemir (Levemir Vial) 30 units SQ AM [facility] Last Admin: 03/19/17 06:15 Dose: Not Given Multivitamins (Total B With C -) 1 each PO DAILY [facility] Last Admin: 03/19/17 10:50 Dose: 1 each Nebivolol (Bystolic -) 5 mg PO DAILY [facility] Last Admin: 03/19/17 10:49 Dose: 5 mg Tamoxifen Citrate (Tamoxifen Citrate) 20 mg PO DAILY [facility] Last Admin: 03/19/17 10:49 Dose: 20 mg - Objective Vital Signs: Vital Signs Temperature 99.1 F 03/19/17 09:43 Pulse Rate 55 L 03/19/17 09:43 Respiratory Rate 19 03/19/17 09:43 Blood Pressure 159/69 03/19/17 09:43 O2 Sat by Pulse Oximetry (%) 97 03/19/17 09:00 Constitutional: Yes: No Distress Eyes: Yes: Conjunctiva Clear Neck: Yes: Other (cervical collar in place) Cardiovascular: Yes: Regular Rate and Rhythm, S1, S2 Respiratory: Yes: CTA Bilaterally Gastrointestinal: Yes: Normal Bowel Sounds, Soft. No: Tenderness Integumentary: Yes: Other (+ shallow- based ulcers R anterior and posterior thorax) Labs: CBC, BMP 03/18/17 06:30 03/19/17 06:30 Assessment/Plan VZV R T7 dermatome S/P C spine fracture OBS Continue IV acyclovir Monitor renal function
[2017-03-19] MEDS ORDERED: INSULIN (NOVOLOG) ASPART 100 UNITS/ML 10ML VIAL ONE ×3 (14:11→21:23)
[2017-03-19] MEDS ORDERED: ERGOCALCIFEROL (VITAMIN D2) 50,000 UNIT CAPSULE (FP) PO SCH (19:15)
[2017-03-19] MEDS ORDERED: INSULIN DETEMIR 100 UNITS/ML MDV SQ ONE (21:22)
[2017-03-19] MEDS: SODIUM CHLORIDE 1,000 ML IV SCH (21:27)
[2017-03-19] MEDS: ATORVASTATIN CA 20 MG TABLET (FP) PO SCH (21:27)
[2017-03-19] MEDS ORDERED: PT OWN MED DRAWER 7, Y5N ONE (21:30)
[2017-03-20] MEDS: ACYCLOVIR INJECTION 350 MG in DEXTROSE 5%-WATER - 100 ML IVPB SCH ×2 (05:04→17:16)
[2017-03-20] MEDS: INSULIN DETEMIR 100 UNITS/ML MDV SQ SCH (06:20)
[2017-03-20] MEDS: INSULIN SLIDING SCALE (NOVOLOG) 1 VIAL SQ SCH ×4 (06:20→21:58)
[2017-03-20] MEDS ORDERED: INSULIN (NOVOLOG) ASPART 100 UNITS/ML 10ML VIAL ONE (07:51)
[2017-03-20 07:57] LABS: ANION GAP 7 (8-16); CALCIUM 8.1 mg/dL (8.5-10.1); CO2 27 mmol/L (21-32); CREATININE 0.9 mg/dL (0.55-1.02); GLUCOSE,RANDOM 93 mg/dL (74-106)
[2017-03-20] MEDS ORDERED: PT OWN MED DRAWER 7, Y5N ONE ×6 (09:02→21:54)
[2017-03-20] MEDS: HEPARIN NA (PORCINE) 5,000 UNITS/ML 1ML VIAL SQ SCH ×2 (09:30→21:55)
[2017-03-20] MEDS: CALCIUM (OYSTER SHELL) 500 MG TABLET (FP) PO SCH ×2 (09:31→21:55)
[2017-03-20] MEDS: ASPIRIN 81 MG CHEWABLE TABLETS PO SCH (09:31)
[2017-03-20] MEDS: FUROSEMIDE 20 MG TABLET (FP) PO SCH (09:31)
[2017-03-20] MEDS: busPIRone HCL 5 MG TABLET PO SCH ×2 (09:32→21:55)
[2017-03-20] MEDS: DIVALPROEX SODIUM 250 MG TABLET E.C. (FP) PO SCH ×2 (09:32→21:55)
[2017-03-20] MEDS: hydrALAZINE HCL 50 MG TABLET (FP) PO SCH ×2 (09:33→21:55)
[2017-03-20] MEDS: ESCITALOPRAM OXALATE 10 MG TABLET (FP) PO SCH (09:33)
[2017-03-20] MEDS: TAMOXIFEN CITRATE 10 MG TABLET PO SCH (09:34)
[2017-03-20] MEDS: VITAMIN B COMPLEX W/C COMBO TABLET (FP) PO SCH (09:35)
--- NOTE | 2017-03-20 10:37 | PN ---
Progress Note, Physician Chief Complaint: alert awke afebrile; no neck pain; shingles drying out - Current Medication List Current Medications: Active Medications Acetaminophen (Tylenol -) 650 mg PO DAILY PRN PRN Reason: PAIN Last Admin: 03/19/17 10:46 Dose: 650 mg Aspirin (Asa -) 81 mg PO DAILY [facility] Last Admin: 03/20/17 09:31 Dose: 81 mg Atorvastatin Calcium (Lipitor -) 20 mg PO HS [facility] Last Admin: 03/19/17 21:27 Dose: 20 mg Buspirone HCl (Buspar -) 5 mg PO BID [facility] Last Admin: 03/20/17 09:32 Dose: 5 mg Calcium Carbonate (Os-Greg 500mg -) 250 mg PO BID [facility] Last Admin: 03/20/17 09:31 Dose: 250 mg Divalproex Sodium (Depakote -) 250 mg PO BID [facility] Last Admin: 03/20/17 09:32 Dose: 250 mg Ergocalciferol (Drisdol -) 50,000 unit PO Fr@1000 [facility] Last Admin: 03/19/17 20:25 Dose: 50,000 unit Escitalopram Oxalate (Lexapro -) 10 mg PO DAILY [facility] Last Admin: 03/20/17 09:33 Dose: 10 mg Furosemide (Lasix -) 20 mg PO DAILY [facility] Last Admin: 03/20/17 09:31 Dose: 20 mg Heparin Sodium (Porcine) (Heparin -) 5,000 unit SQ BID [facility] Last Admin: 03/20/17 09:30 Dose: 5,000 unit Hydralazine HCl (Apresoline -) 100 mg PO BID [facility] Last Admin: 03/20/17 09:33 Dose: 100 mg Sodium Chloride (Normal Saline -) 1,000 mls @ 75 mls/hr IV ASDIR [facility] Last Admin: 03/19/17 21:27 Dose: 75 mls/hr Acyclovir 350 mg/ Dextrose 107 mls @ 100 mls/hr IVPB Q12H [facility] Last Admin: 03/20/17 05:04 Dose: 100 mls/hr Insulin Aspart (Novolog Vial Sliding Scale -) 1 vial SQ ACHS [facility] PRN Reason: Protocol Last Admin: 03/20/17 06:20 Dose: Not Given Insulin Detemir (Levemir Vial) 30 units SQ AM [facility] Last Admin: 03/20/17 06:20 Dose: Not Given Multivitamins (Total B With C -) 1 each PO DAILY [facility] Last Admin: 03/20/17 09:35 Dose: 1 each Nebivolol (Bystolic -) 5 mg PO DAILY [facility] Last Admin: 03/19/17 10:49 Dose: 5 mg Tamoxifen Citrate (Tamoxifen Citrate) 20 mg PO DAILY [facility] Last Admin: 03/20/17 09:34 Dose: 20 mg - Objective Vital Signs: Vital Signs Temperature 97.9 F 03/20/17 09:10 Pulse Rate 50 L 03/20/17 09:10 Respiratory Rate 03/20/17 09:10 Blood Pressure 146/64 03/20/17 09:10 O2 Sat by Pulse Oximetry (%) 96 03/19/17 21:00 Constitutional: Yes: No Distress, Calm Eyes: Yes: Conjunctiva Clear HENT: Yes: Atraumatic Neck: Yes: Supple Cardiovascular: Yes: Regular Rate and Rhythm Respiratory: Yes: CTA Bilaterally Gastrointestinal: Yes: Soft. No: Distention, Tenderness Genitourinary: No: CVA Tenderness - Left, CVA Tenderness - Right Musculoskeletal: No: Joint Stiffness, Joint Swelling Extremities: No: Cold, Cool, Cyanosis Edema: No Peripheral Pulses WNL: Yes Integumentary: Yes: Rash (improving) Neurological: Yes: Alert. No: Oriented ...Motor Strength: WNL Psychiatric: Yes: Alert. No: Oriented, Agitated Labs: CBC, BMP 03/18/17 06:30 03/20/17 06:00 - ....Imaging Other: Report Reviewed Assessment/Plan She is an 89 year old Female with PMH of [place] (8-0 years prior with CABG x2), HTN , hyperlipidemia, DMII, Chronic UTIs, hearing deficit, sight deficit, breast CA and recent neck fracture [place] a [place] [facility], nausea, and vomiting of two days duration in the setting of Valcyclovir initiation for shingles. IV acyclovir IVF for renal protection ID eval; f/u labs neurology f/u for Cspine fracture; MRI noted; will ask NS opinion; falls decubs DVT aspiration PFX d/w pt and son staff
--- NOTE | 2017-03-20 11:27 | PN ---
Progress Note (short form) - Note Progress Note: C2 compression fracture. MRI reviewed. No additional data revealed. No displacement of material from C2 compression fracture. Chronic mid to lower cervical stenosis from degenerative changes. No myelopathy on exam.
[2017-03-20] MEDS: NEBIVOLOL 5 MG TABLET (FP) PO SCH (11:30)
[2017-03-20] MEDS: SODIUM CHLORIDE 1,000 ML IV SCH ×2 (14:00→21:56)
--- NOTE | 2017-03-20 15:37 | PN ---
Progress Note, Physician History of Present Illness: Awake, confused No c/o pain - Current Medication List Current Medications: Active Medications Acetaminophen (Tylenol -) 650 mg PO DAILY PRN PRN Reason: PAIN Last Admin: 03/19/17 10:46 Dose: 650 mg Aspirin (Asa -) 81 mg PO DAILY [facility] Last Admin: 03/20/17 09:31 Dose: 81 mg Atorvastatin Calcium (Lipitor -) 20 mg PO HS [facility] Last Admin: 03/19/17 21:27 Dose: 20 mg Buspirone HCl (Buspar -) 5 mg PO BID [facility] Last Admin: 03/20/17 09:32 Dose: 5 mg Calcium Carbonate (Os-Greg 500mg -) 250 mg PO BID [facility] Last Admin: 03/20/17 09:31 Dose: 250 mg Divalproex Sodium (Depakote -) 250 mg PO BID [facility] Last Admin: 03/20/17 09:32 Dose: 250 mg Ergocalciferol (Drisdol -) 50,000 unit PO Fr@1000 [facility] Last Admin: 03/19/17 20:25 Dose: 50,000 unit Escitalopram Oxalate (Lexapro -) 10 mg PO DAILY [facility] Last Admin: 03/20/17 09:33 Dose: 10 mg Furosemide (Lasix -) 20 mg PO DAILY [facility] Last Admin: 03/20/17 09:31 Dose: 20 mg Heparin Sodium (Porcine) (Heparin -) 5,000 unit SQ BID [facility] Last Admin: 03/20/17 09:30 Dose: 5,000 unit Hydralazine HCl (Apresoline -) 100 mg PO BID [facility] Last Admin: 03/20/17 09:33 Dose: 100 mg Sodium Chloride (Normal Saline -) 1,000 mls @ 75 mls/hr IV ASDIR [facility] Last Admin: 03/19/17 21:27 Dose: 75 mls/hr Acyclovir 350 mg/ Dextrose 107 mls @ 100 mls/hr IVPB Q12H [facility] Last Admin: 03/20/17 05:04 Dose: 100 mls/hr Insulin Aspart (Novolog Vial Sliding Scale -) 1 vial SQ ACHS [facility] PRN Reason: Protocol Last Admin: 03/20/17 12:08 Dose: Not Given Insulin Detemir (Levemir Vial) 30 units SQ AM [facility] Last Admin: 03/20/17 06:20 Dose: Not Given Multivitamins (Total B With C -) 1 each PO DAILY [facility] Last Admin: 03/20/17 09:35 Dose: 1 each Nebivolol (Bystolic -) 5 mg PO DAILY [facility] Last Admin: 03/20/17 11:30 Dose: Not Given Tamoxifen Citrate (Tamoxifen Citrate) 20 mg PO DAILY [facility] Last Admin: 03/20/17 09:34 Dose: 20 mg - Objective Vital Signs: Vital Signs Temperature 98.6 F 03/20/17 13:51 Pulse Rate 62 03/20/17 13:51 Respiratory Rate 18 03/20/17 13:51 Blood Pressure 124/66 03/20/17 13:51 O2 Sat by Pulse Oximetry (%) 98 03/20/17 10:00 Constitutional: Yes: No Distress Eyes: Yes: Conjunctiva Clear Neck: Yes: Other (C collar in place) Cardiovascular: Yes: Regular Rate and Rhythm, S1, S2 Respiratory: Yes: CTA Bilaterally Gastrointestinal: Yes: Normal Bowel Sounds, Soft Edema: No Integumentary: Yes: Other (+ shallow based ulcers R ant ant post thorax) Labs: CBC, BMP 03/18/17 06:30 03/20/17 06:00 Assessment/Plan VZV R T7 dermatome S/P C spine fracture OBS Continue IV acyclovir Monitor renal function
--- NOTE | 2017-03-20 19:52 | PN ---
Progress Note (short form) - Note Progress Note: NEUROSURGERY CONSULT DICTATED H/o CAD s/p CABG, [place], HTN, hyperlipidemia, DM II, and dementa recent neck fracture (s/p fall 7-17) presenting with decreased appetite, nausea, and vomiting of two days duration in the setting of Valcyclovir initiation for shingles. Incontinent of urine at baseline. Denies fevers, chills, chest pain , palpitations, diarrhea, urinary symptoms. No arm or leg weakness. Had gait ataxia x 4+ months. She has been in a hard collar since with no other neurological symptoms. Some neck pain. OE: AF, VSS HEENT- NC/AT; Neck- in Collar; Cor- RR; Lungs- CTA B; Abd- benign; Ext- mild edema, no other sign of DVT A/A/Ox1-2 CN- intact except decreased hearing; Motor-4+-5/5 B UE/LE; Sensation- intact LT/ PP, decreased distal vibratory sensation; DTR- hyporeflexic; Cerebellar- mild tremor WBC 4.5; Hgb 10.9; Cr 0.9 CT C spine ()- extensive spondylosis and DDD; reversal of lordosis; fx C2 body into L C2 lateral mass/pars and posterior R ring fx without significant displacement; moderate multilevel degenerative stenosis MRI C spine ()- C2 body and B posterior element fracture with mild edema with no significant canal or cord impingement; multilevel DDD C3-4 to C7-T1 with moderate- marked stenosis C4-5, C5-6, C6-7 and cord impingement; worst at C5-6 level [place] under tx per neurology/ID Subacute C2 fx, monbilized for about 5 weeks (not seen by myself in January) Need to be immobilized with external rigid orthosis for 5 additional weeks F/U plain film ap/lat in 5 weeks: if stable alignment could have collar removed If Stifneck collar is not well tolerated coudl consider switching to [place] or [place] J collar (the hospital dose not carry them) for the balance of the 5 additional week for immobilization
[2017-03-20] MEDS: ATORVASTATIN CA 20 MG TABLET (FP) PO SCH (21:55)
--- NOTE | 2017-03-20 23:44 | CONS ---
DATE OF CONSULTATION: 03/20/2017 CHIEF COMPLAINT: Subacute C2 fracture. HISTORY OF PRESENT ILLNESS: The patient is an 89-year-old female with history of coronary artery disease, type 2 diabetes, hypertension, hypercholesterolemia and dementia who complains of a recent fracture about 1+ month ago. She had been living in an assisted living facility at the time. She sustained a fracture last month and was sent to rehabilitation. She was found to have shingles with a rash on her back. She has been treated with oral valacyclovir. She has decreased appetite with nausea and vomiting. She has been incontinent of urine on a chronic basis. Presently, she denies any fevers or chills. She does have baseline urinary incontinence but no bowel incontinence. She had some ataxia for at least 4+ months with frequent falls. She denies any arm or leg weakness. The patient has been in a cervical collar for about 5 weeks, reportedly. She was not taken care of by me initially when she sustained the neck fracture. PAST MEDICAL HISTORY: Significant for coronary artery disease, diabetes, hypertension, hypercholesterolemia, dementia, shingles. CURRENT MEDICATIONS: Include Tylenol, acyclovir, subcutaneous heparin, Depakote, Lexapro, Tamoxifen, BuSpar, Bystolic, alprazolam, Lipitor, NovoLog, Levemir, Lasix, baby aspirin, Os-Greg, vitamin B, multivitamin and ergocalciferol. ALLERGIES: There is no known drug allergy. FAMILY HISTORY: Noncontributory. SOCIAL HISTORY: She does not smoke or drink. She used to live in assisted living facility. She is retired. REVIEW OF SYSTEMS: Otherwise negative for other major constitutional, head and neck, cardiovascular, pulmonary, gastrointestinal, genitourinary, endocrinologic, neurologic, gynecologic, or psychological problems except for the above. PHYSICAL EXAMINATION: Vital Signs: Temperature 98.6, blood pressure 124/66 with pulse rate of 62, O2 saturation 98% on room air. HEENT: Shows a lady to be normocephalic, atraumatic, anicteric. Neck: In a rigid cervical collar. Coronary: Demonstrated regular rhythm. Lungs: Clear bilaterally. Abdomen: Benign. Extremities: No obvious signs of DVT and there is trace edema of the bilateral upper and lower extremities. She has a negative Homans sign. Neurologic: She is awake and alert and oriented x1 to 2. Cranial nerve examination demonstrates decreased accessory neural hearing bilaterally. Motor examination shows at least 4+ to 5 out of 5 in the bilateral upper and lower extremities. There is no increased tone. Sensory examination is intact to light touch and pinprick. She has decrease to vibratory sensation. Deep tendon reflexes are hyporeflexive throughout. There is no pathologic long track sign. Cerebellar examination demonstrated a mild resting tremor. Gait not tested for safety reasons. LABORATORY EXAMINATION: Shows a white blood cell count of 4.5, hemoglobin 10.9, platelet count 146,000. Serum sodium was 140 and potassium 3.8. Bun and creatinine are 18 and 0.9, respectively. Calcium is 8.1. Urinalysis is negative. CT scan done on February 11 demonstrated extensive spondylosis throughout. There is multilevel degenerative disk disease with moderate spinal stenosis at C4-5, C5-6, C6-7. There is an acute fracture of the left superior articular facet at C2, including the pars, as well as the body of C2, which extends into the posterior cortex. There is intact neural foramen. There is a right C2 laminar fracture with minimal displacement. There is reversal of normal cervical lordosis. MRI of the cervical spine on March 19 demonstrated multilevel degenerative disk disease with reversal of lordosis. There is moderate to marked C4-5 and marked C5-6 and moderate C6-7 central canal stenosis secondary to degenerative disk disease, facet hypertrophy and ligamentum hypertrophy. Prior C2 fracture on the CT scan is once again visualized. There appears to be edema of bilateral C2 posterior elements consistent with bilateral subacute fracture of the lamina. There is no significant dislocation. There is no spinal cord edema. There is a small amount of prevertebral soft tissue swelling at C2-3 and C4. There is also acute/subacute T1 vertebral compression deformity. Chronic compression deformity of T2 and T3 vertebral bodies are noted. IMPRESSION: 1. Subacute C2 multifocal fracture without gross displacement. 2. T1 vertebral wedge compression fracture. 3. Probable osteoporosis. 4. Hypertension/coronary artery disease. 5. Type 2 diabetes mellitus. 6. Hypercholesterolemia. 7. Shingles. RECOMMENDATIONS: The patient presented with increased appetite and mobility as well as increasing pain, likely secondary to shingles. She had previously sustained a fracture, about 5 weeks earlier. She has been in a rigid cervical collar reportedly. The fracture itself is unstable, but the likelihood of healing is fairly decent given adequate immobilization. She should be immobilized in a rigid cervical collar for about additional weeks. She is currently in Sifneck collar and she does not appear to comfortable with it. She possibly either be shifted to either a [place] J or an [place] collar for better fitting and immobilization for the next 5 weeks. That also could help with her compliance. No neurosurgical intervention is recommended, since this is the first time seeing the patient, as I did not evaluate her 5 weeks ago when she initially sustained the fracture. Followup cervical spine x-rays in [facility] and lateral views should be performed in about 5 weeks to ascertain maintenance of the spinal alignment. If there are no gross changes of the spinal alignment, her cervical collar can be removed. It should be noted that the patient does have underlying spinal stenosis, worse at the C5-6 level. This is on a degenerative basis. She might have had some baseline ataxia secondary to the spinal cord impingement and spinal stenosis. Given her age and medical conditions, she is clearly not a surgical candidate. PREETHI FAGAN M.D. [id number]
[2017-03-21] MEDS: ACYCLOVIR INJECTION 350 MG in DEXTROSE 5%-WATER - 100 ML IVPB SCH ×2 (05:23→17:55)
[2017-03-21] MEDS: INSULIN SLIDING SCALE (NOVOLOG) 1 VIAL SQ SCH ×4 (06:06→23:02)
[2017-03-21] MEDS: INSULIN DETEMIR 100 UNITS/ML MDV SQ SCH (06:06)
--- NOTE | 2017-03-21 09:36 | PN ---
Progress Note, Physician Chief Complaint: in bed awake alert NAD afebrile no new c/o d/w daughter at bedside - Current Medication List Current Medications: Active Medications Acetaminophen (Tylenol -) 650 mg PO DAILY PRN PRN Reason: PAIN Last Admin: 03/19/17 10:46 Dose: 650 mg Aspirin (Asa -) 81 mg PO DAILY [facility] Last Admin: 03/20/17 09:31 Dose: 81 mg Atorvastatin Calcium (Lipitor -) 20 mg PO HS [facility] Last Admin: 03/20/17 21:55 Dose: 20 mg Buspirone HCl (Buspar -) 5 mg PO BID [facility] Last Admin: 03/20/17 21:55 Dose: 5 mg Calcium Carbonate (Os-Greg 500mg -) 250 mg PO BID [facility] Last Admin: 03/20/17 21:55 Dose: 250 mg Divalproex Sodium (Depakote -) 250 mg PO BID [facility] Last Admin: 03/20/17 21:55 Dose: 250 mg Ergocalciferol (Drisdol -) 50,000 unit PO Fr@1000 [facility] Last Admin: 03/19/17 20:25 Dose: 50,000 unit Escitalopram Oxalate (Lexapro -) 10 mg PO DAILY [facility] Last Admin: 03/20/17 09:33 Dose: 10 mg Furosemide (Lasix -) 20 mg PO DAILY [facility] Last Admin: 03/20/17 09:31 Dose: 20 mg Heparin Sodium (Porcine) (Heparin -) 5,000 unit SQ BID [facility] Last Admin: 03/20/17 21:55 Dose: 5,000 unit Hydralazine HCl (Apresoline -) 100 mg PO BID [facility] Last Admin: 03/20/17 21:55 Dose: 100 mg Sodium Chloride (Normal Saline -) 1,000 mls @ 75 mls/hr IV ASDIR [facility] Last Admin: 03/20/17 21:56 Dose: 75 mls/hr Acyclovir 350 mg/ Dextrose 107 mls @ 100 mls/hr IVPB Q12H [facility] Last Admin: 03/21/17 05:23 Dose: 100 mls/hr Insulin Aspart (Novolog Vial Sliding Scale -) 1 vial SQ ACHS [facility] PRN Reason: Protocol Last Admin: 03/21/17 06:06 Dose: Not Given Insulin Detemir (Levemir Vial) 30 units SQ AM [facility] Last Admin: 03/21/17 06:06 Dose: Not Given Multivitamins (Total B With C -) 1 each PO DAILY [facility] Last Admin: 03/20/17 09:35 Dose: 1 each Nebivolol (Bystolic -) 5 mg PO DAILY [facility] Last Admin: 03/20/17 11:30 Dose: Not Given Tamoxifen Citrate (Tamoxifen Citrate) 20 mg PO DAILY [facility] Last Admin: 03/20/17 09:34 Dose: 20 mg - Objective Vital Signs: Vital Signs Temperature 98.4 F 03/21/17 06:00 Pulse Rate 66 03/21/17 06:00 Respiratory Rate 18 03/21/17 06:00 Blood Pressure 137/60 03/21/17 06:00 O2 Sat by Pulse Oximetry (%) 96 03/20/17 21:00 Constitutional: Yes: No Distress, Calm Eyes: Yes: Conjunctiva Clear HENT: Yes: Atraumatic Neck: Yes: Supple Cardiovascular: Yes: Regular Rate and Rhythm Respiratory: Yes: CTA Bilaterally Gastrointestinal: Yes: Soft. No: Distention, Tenderness Genitourinary: No: CVA Tenderness - Left, CVA Tenderness - Right Musculoskeletal: No: Joint Stiffness, Joint Swelling Extremities: No: Cold, Cool Edema: No Integumentary: Yes: Rash (shingles better) Neurological: Yes: Alert ...Motor Strength: WNL Psychiatric: Yes: Alert Labs: CBC, BMP 03/18/17 06:30 03/20/17 06:00 - ....Imaging Other: Report Reviewed Assessment/Plan She is an 89 year old Female with PMH of [place] (8-0 years prior with CABG x2), HTN , hyperlipidemia, DMII, Chronic UTIs, hearing deficit, sight deficit, breast CA and recent neck fracture after a [place] [facility], nausea, and vomiting of two days duration in the setting of Valcyclovir initiation for shingles. IV acyclovir d.w ID IVF for renal protection ID eval; f/u labs neurology f/u for Cspine fracture; MRI noted; NS opinion noted; falls decubs DVT aspiration PFX d/w pt and son staff
--- NOTE | 2017-03-21 10:15 | PN ---
Progress Note (short form) - Note Progress Note: C2 compression fracture. MRI reviewed. No additional data revealed. No displacement of material from C2 compression fracture. Chronic mid to lower cervical stenosis from degenerative changes. No myelopathy on exam. Appreciate Dr. Car's note. To have c-spine immobilized per neurosurgery. We'll sign off for now. Should follow up with us as outpatient though. [phone]. Thanks.
[2017-03-21] MEDS: VITAMIN B COMPLEX W/C COMBO TABLET (FP) PO SCH (10:36)
[2017-03-21] MEDS: FUROSEMIDE 20 MG TABLET (FP) PO SCH (10:36)
[2017-03-21] MEDS: NEBIVOLOL 5 MG TABLET (FP) PO SCH (10:37)
[2017-03-21] MEDS: CALCIUM (OYSTER SHELL) 500 MG TABLET (FP) PO SCH ×3 (10:37→23:16)
[2017-03-21] MEDS: ESCITALOPRAM OXALATE 10 MG TABLET (FP) PO SCH (10:37)
[2017-03-21] MEDS: ASPIRIN 81 MG CHEWABLE TABLETS PO SCH (10:37)
[2017-03-21] MEDS: hydrALAZINE HCL 50 MG TABLET (FP) PO SCH ×3 (10:37→23:14)
[2017-03-21] MEDS: HEPARIN NA (PORCINE) 5,000 UNITS/ML 1ML VIAL SQ SCH ×2 (10:37→23:02)
[2017-03-21] MEDS: busPIRone HCL 5 MG TABLET PO SCH ×3 (10:37→23:16)
[2017-03-21] MEDS: DIVALPROEX SODIUM 250 MG TABLET E.C. (FP) PO SCH ×3 (10:37→23:16)
[2017-03-21] MEDS: TAMOXIFEN CITRATE 10 MG TABLET PO SCH (10:38)
--- NOTE | 2017-03-21 14:38 | PN ---
Progress Note, Physician History of Present Illness: Awake but confused Offers no complaints Afebrile WBC WNL Tolerating ACV Cr 0.9 - Current Medication List Current Medications: Active Medications Acetaminophen (Tylenol -) 650 mg PO DAILY PRN PRN Reason: PAIN Last Admin: 03/19/17 10:46 Dose: 650 mg Aspirin (Asa -) 81 mg PO DAILY [facility] Last Admin: 03/21/17 10:37 Dose: 81 mg Atorvastatin Calcium (Lipitor -) 20 mg PO HS [facility] Last Admin: 03/20/17 21:55 Dose: 20 mg Buspirone HCl (Buspar -) 5 mg PO BID [facility] Last Admin: 03/21/17 10:37 Dose: 5 mg Calcium Carbonate (Os-Greg 500mg -) 250 mg PO BID [facility] Last Admin: 03/21/17 10:37 Dose: 250 mg Divalproex Sodium (Depakote -) 250 mg PO BID [facility] Last Admin: 03/21/17 10:37 Dose: 250 mg Ergocalciferol (Drisdol -) 50,000 unit PO Fr@1000 [facility] Last Admin: 03/19/17 20:25 Dose: 50,000 unit Escitalopram Oxalate (Lexapro -) 10 mg PO DAILY [facility] Last Admin: 03/21/17 10:37 Dose: 10 mg Furosemide (Lasix -) 20 mg PO DAILY [facility] Last Admin: 03/21/17 10:36 Dose: 20 mg Heparin Sodium (Porcine) (Heparin -) 5,000 unit SQ BID [facility] Last Admin: 03/21/17 10:37 Dose: 5,000 unit Hydralazine HCl (Apresoline -) 100 mg PO BID [facility] Last Admin: 03/21/17 10:37 Dose: 100 mg Sodium Chloride (Normal Saline -) 1,000 mls @ 75 mls/hr IV ASDIR [facility] Last Admin: 03/20/17 21:56 Dose: 75 mls/hr Acyclovir 350 mg/ Dextrose 107 mls @ 100 mls/hr IVPB Q12H [facility] Last Admin: 03/21/17 05:23 Dose: 100 mls/hr Insulin Aspart (Novolog Vial Sliding Scale -) 1 vial SQ ACHS [facility] PRN Reason: Protocol Last Admin: 03/21/17 11:07 Dose: Not Given Insulin Detemir (Levemir Vial) 30 units SQ AM [facility] Last Admin: 03/21/17 06:06 Dose: Not Given Multivitamins (Total B With C -) 1 each PO DAILY [facility] Last Admin: 03/21/17 10:36 Dose: 1 each Nebivolol (Bystolic -) 5 mg PO DAILY [facility] Last Admin: 03/21/17 10:37 Dose: 5 mg Tamoxifen Citrate (Tamoxifen Citrate) 20 mg PO DAILY [facility] Last Admin: 03/21/17 10:38 Dose: 20 mg - Objective Vital Signs: Vital Signs Temperature 98.7 F 03/21/17 10:00 Pulse Rate 52 L 03/21/17 10:00 Respiratory Rate 19 03/21/17 10:00 Blood Pressure 148/63 03/21/17 10:00 O2 Sat by Pulse Oximetry (%) 96 03/21/17 09:00 Constitutional: Yes: No Distress Eyes: Yes: Conjunctiva Clear HENT: Yes: Other (C collar in place) Cardiovascular: Yes: Regular Rate and Rhythm, S1, S2 Respiratory: Yes: Diminished Gastrointestinal: Yes: Normal Bowel Sounds, Soft. No: Tenderness Integumentary: Yes: Other (+ shallow-based ulcers R ant and post thorax do not appear secondarily infected) Labs: CBC, BMP 03/18/17 06:30 03/20/17 06:00 Assessment/Plan VZV R T7 dermatome S/P C spine fracture OBS Continue IV acyclovir Monitor renal function
--- NOTE | 2017-03-21 16:59 | PN ---
Progress Note (short form) - Note Progress Note: NEUROSURGERY Some neck pain; tolerating po PE: AF, VSS HEENT- NC/AT; Neck- in [place] J Collar; Cor- RR; Lungs- CTA B; Abd- benign; Ext- mild edema, no other sign of DVT A/A/Ox1-2 CN- intact except decreased hearing; Motor-4+-5/5 B UE/LE; Sensation- intact LT/ PP, decreased distal vibratory sensation; DTR- hyporeflexic; CT C spine () - extensive spondylosis and DDD; reversal of lordosis; fx C2 body into L C2 lateral mass/pars and posterior R ring fx without significant displacement; moderate multilevel degenerative stenosis MRI C spine ()- C2 body and B posterior element fracture with mild edema with no significant canal or cord impingement; multilevel DDD C3-4 to C7-T1 with moderate- marked stenosis C5-6 > C4-5 > C6-7 and cord impingement Shingles under tx per neurology/ID Subacute C2 fx, mobilized for about 5 weeks (not seen by myself in January) Need to be immobilized with external rigid orthosis for 5 additional weeks at least F/U plain film ap/lat in 5 weeks: if stable alignment could have collar removed at that time Doing better with [place] J collar Care d/w daughter at bedside
[2017-03-21] MEDS ORDERED: INSULIN (NOVOLOG) ASPART 100 UNITS/ML 10ML VIAL ONE (18:07)
[2017-03-21] MEDS ORDERED: PT OWN MED DRAWER 7, Y5N ONE (23:01)
[2017-03-21] MEDS: ATORVASTATIN CA 20 MG TABLET (FP) PO SCH ×2 (23:02→23:16)
[2017-03-21] MEDS: SODIUM CHLORIDE 1,000 ML IV SCH (23:03)
[2017-03-22] MEDS ORDERED: PT OWN MED DRAWER 7, Y5N ONE ×2 (05:26→22:14)
[2017-03-22] MEDS: ACYCLOVIR INJECTION 350 MG in DEXTROSE 5%-WATER - 100 ML IVPB SCH (05:28)
[2017-03-22] MEDS: INSULIN SLIDING SCALE (NOVOLOG) 1 VIAL SQ SCH ×4 (06:29→23:34)
--- NOTE | 2017-03-22 08:22 | PN ---
Progress Note (short form) - Note Progress Note: NEUROSURGERY Some neck pain Collar adjusted to be under chin PE: AF, VSS HEENT- NC/AT; Neck- in [place] Collar; Cor- RR; Lungs- CTA B; Abd- benign; Ext- mild edema, no other sign of DVT A/A/Ox1-2 CN- intact except decreased hearing; Motor-4+-5/5 B UE/LE; Sensation- intact LT/ PP, decreased distal vibratory sensation; DTR- hyporeflexic Shingles under tx per neurology/ID Subacute C2 fx, immobilized for about 5 weeks (not seen by myself in January) Need to be immobilized with external rigid orthosis for 5 additional weeks at least F/U C spine plain film ap/lat in 5 weeks: if stable alignment could have collar removed at that time Doing better with [place] collar
[2017-03-22] MEDS: INSULIN DETEMIR 100 UNITS/ML MDV SQ SCH (08:38)
--- NOTE | 2017-03-22 09:44 | PN ---
Progress Note, Physician History of Present Illness: Awake, confused No c/o chest or back pain Afebrile Tolerating acyclovir - Current Medication List Current Medications: Active Medications Acetaminophen (Tylenol -) 650 mg PO DAILY PRN PRN Reason: PAIN Last Admin: 03/19/17 10:46 Dose: 650 mg Aspirin (Asa -) 81 mg PO DAILY [facility] Last Admin: 03/21/17 10:37 Dose: 81 mg Atorvastatin Calcium (Lipitor -) 20 mg PO HS [facility] Last Admin: 03/21/17 23:16 Dose: Not Given Buspirone HCl (Buspar -) 5 mg PO BID [facility] Last Admin: 03/21/17 23:16 Dose: Not Given Calcium Carbonate (Os-Greg 500mg -) 250 mg PO BID [facility] Last Admin: 03/21/17 23:16 Dose: Not Given Divalproex Sodium (Depakote -) 250 mg PO BID [facility] Last Admin: 03/21/17 23:16 Dose: Not Given Ergocalciferol (Drisdol -) 50,000 unit PO Fr@1000 [facility] Last Admin: 03/19/17 20:25 Dose: 50,000 unit Escitalopram Oxalate (Lexapro -) 10 mg PO DAILY [facility] Last Admin: 03/21/17 10:37 Dose: 10 mg Furosemide (Lasix -) 20 mg PO DAILY [facility] Last Admin: 03/21/17 10:36 Dose: 20 mg Heparin Sodium (Porcine) (Heparin -) 5,000 unit SQ BID [facility] Last Admin: 03/21/17 23:02 Dose: 5,000 unit Hydralazine HCl (Apresoline -) 100 mg PO BID [facility] Last Admin: 03/21/17 23:14 Dose: Not Given Sodium Chloride (Normal Saline -) 1,000 mls @ 75 mls/hr IV ASDIR [facility] Last Admin: 03/21/17 23:03 Dose: 75 mls/hr Acyclovir 350 mg/ Dextrose 107 mls @ 100 mls/hr IVPB Q12H [facility] Last Admin: 03/22/17 05:28 Dose: 100 mls/hr Insulin Aspart (Novolog Vial Sliding Scale -) 1 vial SQ ACHS [facility] PRN Reason: Protocol Last Admin: 03/22/17 06:29 Dose: Not Given Insulin Detemir (Levemir Vial) 30 units SQ AM [facility] Last Admin: 03/21/17 06:06 Dose: Not Given Multivitamins (Total B With C -) 1 each PO DAILY [facility] Last Admin: 03/21/17 10:36 Dose: 1 each Nebivolol (Bystolic -) 5 mg PO DAILY [facility] Last Admin: 03/21/17 10:37 Dose: 5 mg Tamoxifen Citrate (Tamoxifen Citrate) 20 mg PO DAILY [facility] Last Admin: 03/21/17 10:38 Dose: 20 mg - Objective Vital Signs: Vital Signs Temperature 98.5 F 03/22/17 05:43 Pulse Rate 61 03/22/17 05:43 Respiratory Rate 18 03/22/17 05:43 Blood Pressure 161/88 03/22/17 05:43 O2 Sat by Pulse Oximetry (%) 95 03/21/17 21:00 Constitutional: Yes: No Distress Eyes: Yes: Conjunctiva Clear Cardiovascular: Yes: Regular Rate and Rhythm, S1, S2 Respiratory: Yes: CTA Bilaterally Gastrointestinal: Yes: Normal Bowel Sounds, Soft. No: Tenderness Integumentary: Yes: Other (dry VZV lesions, anterior and posterior R chest) Labs: CBC, BMP 03/18/17 06:30 03/20/17 06:00 Assessment/Plan VZV R T7 dermatome S/P C spine fracture OBS D/C IV acyclovir after today's dose, observe off.
[2017-03-22] MEDS: hydrALAZINE HCL 50 MG TABLET (FP) PO SCH ×2 (10:39→23:01)
[2017-03-22] MEDS: FUROSEMIDE 20 MG TABLET (FP) PO SCH (10:39)
[2017-03-22] MEDS: NEBIVOLOL 5 MG TABLET (FP) PO SCH (10:39)
[2017-03-22] MEDS: ESCITALOPRAM OXALATE 10 MG TABLET (FP) PO SCH (10:39)
[2017-03-22] MEDS: HEPARIN NA (PORCINE) 5,000 UNITS/ML 1ML VIAL SQ SCH ×2 (10:40→23:01)
[2017-03-22] MEDS: VITAMIN B COMPLEX W/C COMBO TABLET (FP) PO SCH (10:40)
[2017-03-22] MEDS: busPIRone HCL 5 MG TABLET PO SCH ×2 (10:40→23:01)
[2017-03-22] MEDS: DIVALPROEX SODIUM 250 MG TABLET E.C. (FP) PO SCH ×2 (10:40→23:01)
[2017-03-22] MEDS: ASPIRIN 81 MG CHEWABLE TABLETS PO SCH (10:40)
[2017-03-22] MEDS: TAMOXIFEN CITRATE 10 MG TABLET PO SCH (10:40)
[2017-03-22] MEDS: CALCIUM (OYSTER SHELL) 500 MG TABLET (FP) PO SCH ×2 (10:40→23:01)
--- NOTE | 2017-03-22 15:40 | PN ---
Progress Note, Physician Chief Complaint: no c/o - Current Medication List Current Medications: Active Medications Acetaminophen (Tylenol -) 650 mg PO DAILY PRN PRN Reason: PAIN Last Admin: 03/19/17 10:46 Dose: 650 mg Aspirin (Asa -) 81 mg PO DAILY [facility] Last Admin: 03/22/17 10:40 Dose: 81 mg Atorvastatin Calcium (Lipitor -) 20 mg PO HS [facility] Last Admin: 03/21/17 23:16 Dose: Not Given Buspirone HCl (Buspar -) 5 mg PO BID [facility] Last Admin: 03/22/17 10:40 Dose: 5 mg Calcium Carbonate (Os-Greg 500mg -) 250 mg PO BID [facility] Last Admin: 03/22/17 10:40 Dose: 250 mg Divalproex Sodium (Depakote -) 250 mg PO BID [facility] Last Admin: 03/22/17 10:40 Dose: 250 mg Ergocalciferol (Drisdol -) 50,000 unit PO Fr@1000 [facility] Last Admin: 03/19/17 20:25 Dose: 50,000 unit Escitalopram Oxalate (Lexapro -) 10 mg PO DAILY [facility] Last Admin: 03/22/17 10:39 Dose: 10 mg Furosemide (Lasix -) 20 mg PO DAILY [facility] Last Admin: 03/22/17 10:39 Dose: 20 mg Heparin Sodium (Porcine) (Heparin -) 5,000 unit SQ BID [facility] Last Admin: 03/22/17 10:40 Dose: 5,000 unit Hydralazine HCl (Apresoline -) 100 mg PO BID [facility] Last Admin: 03/22/17 10:39 Dose: 100 mg Sodium Chloride (Normal Saline -) 1,000 mls @ 75 mls/hr IV ASDIR [facility] Last Admin: 03/21/17 23:03 Dose: 75 mls/hr Insulin Aspart (Novolog Vial Sliding Scale -) 1 vial SQ ACHS [facility] PRN Reason: Protocol Last Admin: 03/22/17 12:39 Dose: Not Given Insulin Detemir (Levemir Vial) 30 units SQ AM [facility] Last Admin: 03/22/17 08:38 Dose: 30 units Multivitamins (Total B With C -) 1 each PO DAILY [facility] Last Admin: 03/22/17 10:40 Dose: 1 each Nebivolol (Bystolic -) 5 mg PO DAILY [facility] Last Admin: 03/22/17 10:39 Dose: 5 mg Tamoxifen Citrate (Tamoxifen Citrate) 20 mg PO DAILY [facility] Last Admin: 03/22/17 10:40 Dose: 20 mg - Objective Vital Signs: Vital Signs Temperature 99.1 F 03/22/17 14:00 Pulse Rate 61 03/22/17 14:00 Respiratory Rate 16 03/22/17 14:00 Blood Pressure 138/41 03/22/17 14:00 O2 Sat by Pulse Oximetry (%) 95 03/22/17 09:00 Constitutional: Yes: No Distress Eyes: Yes: Conjunctiva Clear HENT: Yes: Atraumatic Neck: Yes: Supple Cardiovascular: Yes: Regular Rate and Rhythm Respiratory: Yes: CTA Bilaterally Gastrointestinal: Yes: Soft Genitourinary: No: Hematuria Musculoskeletal: No: Joint Swelling Extremities: No: Cold, Cool, Cyanosis Edema: No Integumentary: Yes: Rash (less) Neurological: Yes: Alert ...Motor Strength: WNL Psychiatric: Yes: Alert. No: Agitated Labs: CBC, BMP 03/18/17 06:30 03/20/17 06:00 - ....Imaging Other: Report Reviewed Assessment/Plan She is an 89 year old Female with PMH of [place] (8-0 years prior with CABG x2), HTN , hyperlipidemia, DMII, Chronic UTIs, hearing deficit, sight deficit, breast CA and recent neck fracture after a fall in [place] presenting to [facility] the emergency [facility] for decreased appetite, nausea, and vomiting of two days duration in the setting of Valcyclovir initiation for shingles. DC IV acyclovir per ID and observe IVF for renal protection ID eval; f/u labs neurology f/u for Cspine fracture; MRI noted; NS opinion noted; neck collar on per NS falls decubs DVT aspiration PFX d/w pt and son and daughter, d/w CM & staff; pt was in [facility] but her family do not want her to go back there; they want her to go home [place] as before; d/w pt and family should be WC at all times do not get OOB or OOWC alone
[2017-03-22] MEDS: SODIUM CHLORIDE 1,000 ML IV SCH (23:01)
[2017-03-22] MEDS: ATORVASTATIN CA 20 MG TABLET (FP) PO SCH (23:01)
[2017-03-22] MEDS: ACETAMINOPHEN 325 MG TABLET (FP) PO PRN (23:01)
[2017-03-23] MEDS: INSULIN DETEMIR 100 UNITS/ML MDV SQ SCH (06:34)
[2017-03-23] MEDS: INSULIN SLIDING SCALE (NOVOLOG) 1 VIAL SQ SCH (06:34)
--- NOTE | 2017-03-23 07:58 | PN ---
Progress Note (short form) - Note Progress Note: NEUROSURGERY Some neck pain PE: Tmax 99.4, AF, VSS Resting comfortably HEENT- NC/AT; Neck- in [place] J Collar; Cor- RR; Lungs- CTA B; Abd- benign; Ext- mild edema, no other sign of DVT A/A/Ox1-2 CN- intact except decreased hearing; Motor- 5/5 B UE/LE; Sensation- intact LT/PP , decreased distal vibratory sensation; DTR- hyporeflexic Shingles under tx per neurology/ID Subacute C2 fx, immobilized for about 5 weeks Cont immobilization with external rigid orthosis for 5 additional weeks at least
--- NOTE | 2017-03-23 10:14 | DS ---
Physical Examination Vital Signs: Vital Signs Temperature 99.1 F 03/23/17 06:00 Pulse Rate 53 L 03/23/17 06:00 Respiratory Rate 18 03/23/17 06:00 Blood Pressure 182/55 03/23/17 06:00 O2 Sat by Pulse Oximetry (%) 96 03/22/17 22:00 Findings/Remarks: off IV acyclovir; rash healed events consults meds noted DC instructions d/w pt's family; pt to go to [place] T time 50 minutes scripts done, WC script; d.w pt and family and CM Constitutional: Yes: No Distress, Calm Eyes: Yes: Conjunctiva Clear HENT: Yes: Atraumatic Neck: Yes: Supple Cardiovascular: Yes: Regular Rate and Rhythm Respiratory: Yes: CTA Bilaterally Gastrointestinal: Yes: Soft. No: Distention, Tenderness Renal/: No: CVA Tenderness - Left, CVA Tenderness - Right, [place] Present, Hematuria Musculoskeletal: No: Back Pain, Joint Stiffness, Joint Swelling Extremities: No: Calf Tenderness, Cold, Cool, Cyanosis Edema: No Peripheral Pulses WNL: Yes Integumentary: Yes: Rash (healing dry shingles rash). No: Venous Stasis Changes Neurological: Yes: Alert ...Motor Strength: WNL Psychiatric: Yes: Alert. No: Agitated Labs: CBC, BMP 03/18/17 06:30 03/20/17 06:00 Discharge Summary Reason For Visit: HERPES ZOSTER; NAUSEA; VOMITING Current Active Problems Nausea & vomiting (Acute) Zoster (Acute) Procedures: Principal: extensive R chest shingles, could not tolerate po valtrex; N/V/ARF dehydration Other Procedures: seen by ID, IV acyclovir; IVF;. also seen by neurology and NS for CSpine fracture - neck collar on Hospital Course: improved with above; DC to [place] where she lived before, per pt's family wishes; nonambulatory; WC bound; falls risks. Condition: Stable - Instructions Diet, Activity, Other Instructions: f/u PCP, neurology and NS in 1-4 weeks after DC keep neck collar on at least 5 weeks, see NS dr Deandre Car for further instructions wheelchair bound; do not get OOB or OOWC without help falls decubs PFX d/w pt and 2 children Referrals: Dallas Arreaga MD [Primary Care Provider] - Carlo Car MD [Staff Physician] - Seth Jackson DO [Staff Physician] - Disposition: HOME - Home Medications Comprehensive Discharge Medication List: Ambulatory Orders Aspirin [ASA -] 81 mg PO DAILY 01/15/15 Atorvastatin Ca [Lipitor -] 20 mg PO HS 01/15/15 Calcium Carbonate [Calcium] 250 mg PO BID 01/15/15 Escitalopram Oxalate [Lexapro -] 10 mg PO DAILY 01/15/15 Hydralazine HCl 100 mg PO BID 01/15/15 Insulin (Novolog) [Novolog -] 5 units SQ TID 01/15/15 Nebivolol HCl [Bystolic] 5 mg PO DAILY 01/15/15 Tamoxifen Citrate 20 mg PO DAILY 01/15/15 Furosemide 20 mg PO DAILY 04/26/15 Hydroxyzine HCl [Atarax -] 12.5 mg PO BID 04/26/15 Acetaminophen [Tylenol] 650 mg PO DAILY PRN 10/11/16 B Complex with Vitamin C [Super B Complex-Vitamin C] 1 each PO DAILY 10/11/16 Buspirone HCl [Buspar -] 5 mg PO BID 10/11/16 Divalproex [Depakote -] 250 mg PO BID 10/11/16 Ergocalciferol (Vitamin D2) [Vitamin D2] 50,000 unit PO WEEKLY 10/11/16 Insulin Glargine,Hum.rec.anlog [[place]jeo Solostar] 30 unit SQ AM 10/11/16 Valacyclovir HCl [Valtrex] 1,000 mg PO TID 03/17/17
[2017-03-23 10:22] VITALS: BP 190/67; PULSE 56; TEMP 98.6
[2017-03-23] MEDS: hydrALAZINE HCL 50 MG TABLET (FP) PO SCH (10:22)
[2017-03-23] MEDS: TAMOXIFEN CITRATE 10 MG TABLET PO SCH (10:22)
[2017-03-23] MEDS: HEPARIN NA (PORCINE) 5,000 UNITS/ML 1ML VIAL SQ SCH (10:22)
[2017-03-23] MEDS: ESCITALOPRAM OXALATE 10 MG TABLET (FP) PO SCH (10:23)
[2017-03-23] MEDS: ASPIRIN 81 MG CHEWABLE TABLETS PO SCH (10:23)
[2017-03-23] MEDS: FUROSEMIDE 20 MG TABLET (FP) PO SCH (10:23)
[2017-03-23] MEDS: busPIRone HCL 5 MG TABLET PO SCH (10:23)
[2017-03-23] MEDS: VITAMIN B COMPLEX W/C COMBO TABLET (FP) PO SCH (10:23)
[2017-03-23] MEDS: NEBIVOLOL 5 MG TABLET (FP) PO SCH (10:23)
[2017-03-23] MEDS: CALCIUM (OYSTER SHELL) 500 MG TABLET (FP) PO SCH (10:23)
[2017-03-23] MEDS: DIVALPROEX SODIUM 250 MG TABLET E.C. (FP) PO SCH (10:23)
== END 2017-03-23 13:51 | disposition home or self-care (01) | DRG 596 ==
LOC: JER 14:33 → JERBED 15:57 → J4S 18:05
PROVIDERS: ADMIT Internal Medicine; ATTEND Internal Medicine
DX: B02.9 Zoster without complications (principal); N17.9 Acute kidney failure, unspecified; S12.100A Unspecified displaced fracture of second cervical vertebra, initial encounter for closed fracture; M48.54XA Collapsed vertebra, not elsewhere classified, thoracic region, initial encounter for fracture; R11.2 Nausea with vomiting, unspecified; E86.0 Dehydration; E78.5 Hyperlipidemia, unspecified; I10 Essential (primary) hypertension; E11.9 Type 2 diabetes mellitus without complications; I25.10 Atherosclerotic heart disease of native coronary artery without angina pectoris; Z95.1 Presence of aortocoronary bypass graft; F09 Unspecified mental disorder due to known physiological condition; F03.90 Unspecified dementia, unspecified severity, without behavioral disturbance, psychotic disturbance, mood disturbance, and anxiety; W19.XXXA Unspecified fall, initial encounter; Y93.9 Activity, unspecified; Y92.89 Other specified places as the place of occurrence of the external cause; Y99.9 Unspecified external cause status; Z85.3 Personal history of malignant neoplasm of breast
CPT/HCPCS: 36415; 71010-TC; 72141-TC; 80048; 80053; 81003; 83735; 84100; 85025; 87086; 93005; 93010; 97116-GP; 97161-GP; 99282-25; J1644

== ENCOUNTER 2017-04-27 07:05 | Emergency (ER) | payer OTHER, BC ==
--- NOTE | 2017-04-27 07:28 | PDOC ---
History of Present Illness - General History Source: Patient Exam Limitations: No Limitations - History of Present Illness Initial Comments: 04/27/17 08:12 The patient is an 89 year old female, with significant past medical history of DMII, subacute C2 fracture, herpes zoster, CABG, HTN, HLD, chronic UTIs, who was BIBA from [facility] after staff tested her blood glucose level this morning to be 39. She had a cup of orange juice and upon arrival to the ER her blood glucose level was 93. [facility] staff reported no other changes in behavior, no LOC. The patient denies any pain, fever, chills, nausea , vomiting. Denies headache, lightheadedness, dizziness, changes in vision. Allergies: NKDA PCP: Dr. Elina Arreaga Neurologist: Dr. Espinosa <Nataliya Barbosa - Last Filed: 04/27/17 10:50> - General History Source: Patient <Kirill Lindsay - Last Filed: 04/27/17 11:02> - General Stated Complaint: BLOOD SUGAR PROBLEM Time Seen by Provider: 04/27/17 07:19 Past History <Nataliya Barbosa - Last Filed: 04/27/17 10:50> - Past Medical History Anemia: No Asthma: No Cancer: Yes (left breast) Cardiac Disorders: Yes (bypass sx) CVA: No COPD: No CHF: No Dementia: No Diabetes: Yes GI Disorders: No Disorders: No HTN: Yes Hypercholesterolemia: Yes Liver Disease: No Seizures: No Thyroid Disease: No - Surgical History Abdominal Surgery: No Appendectomy: No Cardiac Surgery: Yes (BYPASS) Cholecystectomy: No Lung Surgery: No Neurologic Surgery: No Orthopedic Surgery: Yes (L KNEE REPLACEMENT) - Suicide/Smoking/Psychosocial Hx Smoking Status: No Smoking History: Never smoked Have you smoked in the past 12 months: No Number of Cigarettes Smoked Daily: 0 Hx Alcohol Use: No Drug/Substance Use Hx: No Substance Use Type: None Hx Substance Use Treatment: No <Kirill Lindsay - Last Filed: 04/27/17 11:02> - Past Medical History Allergies/Adverse Reactions: Allergies Allergy/AdvReac Type Severity Reaction Status Date / Time No Known Drug Allergies Allergy Verified 04/27/17 08:25 Home Medications: Ambulatory Orders Acetaminophen [Tylenol] 650 mg PO DAILY PRN #120 tab 03/23/17 Aspirin [ASA -] 81 mg PO DAILY #90 tablet 03/23/17 Atorvastatin Ca [Lipitor] 20 mg PO HS #90 tab 03/23/17 B Complex with Vitamin C [Super B Complex-Vitamin C] 1 each PO DAILY #90 tab Buspirone HCl [Buspar -] 5 mg PO BID #180 tab 03/23/17 Calcium ([place]) [Os-Greg 500MG -] 250 mg PO BID #180 tablet 03/23/17 Divalproex [Depakote -] 250 mg PO BID #180 tab 03/23/17 Ergocalciferol (Vitamin D2) [Vitamin D2] 50,000 unit PO WEEKLY #12 tab 03/23/17 Escitalopram Oxalate [Lexapro -] 10 mg PO DAILY #90 tab 03/23/17 Furosemide 20 mg PO DAILY #90 tab 03/23/17 Hydralazine HCl [Apresoline -] 100 mg PO BID #180 tablet 03/23/17 Hydroxyzine HCl [Atarax -] 12.5 mg PO BID PRN #90 tab 03/23/17 Insulin Glargine,Hum.rec.anlog [Toujeo Solostar] 30 unit SQ AM #1 bottle Insulin Sliding Scale [Novolog Vial Sliding Scale -] 1 vial SQ ACHS units 03/23 Nebivolol [Bystolic -] 5 mg PO DAILY #90 tab 03/23/17 Tamoxifen Citrate 20 mg PO DAILY #90 tablet 03/23/17 Cephalexin [Keflex] 500 mg PO BID #14 capsule 04/27/17 Review of Systems - Review of Systems Comments:: 04/27/17 08:13 GENERAL/CONSTITUTIONAL: No fever or chills. No weakness. HEAD, EYES, EARS, NOSE AND THROAT: No change in vision. No ear pain or discharge. No sore throat. CARDIOVASCULAR: No chest pain or shortness of breath. RESPIRATORY: No cough, wheezing, or hemoptysis. GASTROINTESTINAL: No nausea, vomiting, diarrhea or constipation. GENITOURINARY: No dysuria, frequency, or change in urination. MUSCULOSKELETAL: No joint or muscle swelling or pain. No neck or back pain. SKIN: No rash NEUROLOGIC: No headache, vertigo, loss of consciousness, or change in strength/ sensation. ENDOCRINE: No increased thirst. No abnormal weight change. HEMATOLOGIC/LYMPHATIC: No anemia, easy bleeding, or history of blood clots. ALLERGIC/IMMUNOLOGIC: No hives or skin allergy. <Nataliya Barbosa - Last Filed: 04/27/17 10:50> *Physical Exam - Vital Signs Last Vital Signs Temp Pulse Resp BP Pulse Ox 97.5 F L 64 18 132/89 98 04/27/17 07:27 04/27/17 07:27 04/27/17 07:27 04/27/17 07:27 04/27/17 07:27 - Physical Exam Comments: 04/27/17 08:13 GENERAL: Awake, alert, oriented x2, in no acute distress HEAD: +neck collar. EYES: PERRLA, EOMI, sclera anicteric, conjunctiva clear ENT: Auricles normal inspection, hearing grossly normal, nares patent, oropharynx clear without exudates. Moist mucosa NECK: Normal ROM, supple, no lymphadenopathy, JVD, or masses LUNGS: Breath sounds equal, clear to auscultation bilaterally. No wheezes, and no crackles HEART: Regular rate and rhythm, normal S1 and S2, no murmurs, rubs or gallops ABDOMEN: Soft, nontender, normoactive bowel sounds. No guarding, no rebound. No masses EXTREMITIES: Trace 1+pitting edema bilaterally. Normal range of motion. No clubbing or cyanosis. No cords, erythema, or tenderness NEUROLOGICAL: Cranial nerves II through XII grossly intact. Normal speech, normal gait SKIN: +healed right dermatome T7 rash. No open lesions. Warm, Dry, normal turgor. <Nataliya Barbosa - Last Filed: 04/27/17 10:50> Heart Score/ECG Review #1 ECG reviewed & interpreted by me at: 07:20 04/27/17 08:23 NSR 56, LAFB, LVH c/ TWI I, avL, no std/summer, QTC 445 msec <Kirill Lindsay - Last Filed: 04/27/17 11:02> ED Treatment Course - LABORATORY CBC & Chemistry Diagram: 04/27/17 07:52 04/27/17 07:52 - ADDITIONAL ORDERS Additional order review: Laboratory Results 04/27/17 07:22 POC Glucometer 98.54716 04/27/17 07:22 POC Glucometer 98.18984 <Nataliya Barbosa - Last Filed: 04/27/17 10:50> - LABORATORY CBC & Chemistry Diagram: 04/27/17 07:52 04/27/17 07:52 <Kirill Lindsay - Last Filed: 04/27/17 11:02> Medical Decision Making - Medical Decision Making 04/27/17 10:[address] Arreaga via answering service. Awaiting call back. 04/27/17 10:50 Dr. Arreaga called back and spoke with Dr. Lindsay <Nataliya Barbosa - Last Filed: 04/27/17 10:50> - Medical Decision Making 04/27/17 08:21 A portion of this note was written by my scribe, under my supervision. Vital Signs Temp Pulse Resp BP Pulse Ox 97.5 F L 64 18 132/89 98 04/27/17 07:27 04/27/17 07:27 04/27/17 07:27 04/27/17 07:27 04/27/17 07:27 89 year old female with hx DMII, subacute C2 fracture, herpes zoster, CABG, HTN , HLD, chronic UTIs, who was BIBA from [facility] p/w asymptomatic hypoglycemia of 39. Pt was undergoing routine fingerstick and noted low glucose. Pt was given juice and gluocse improved to 90s. Pt reports no symptoms. According to facility, pt is at mental baseline. Diagnosis: hypoglycemia. Will observe patient and draw labs. Will repeat fingerstick and give patient juice. If labs do not demonstrate infectious etiology i.e. UTI, metabolic disarray renal failure, will likely d/c back to nursing facility. As of note, the herpes zoster lesion appears completely healed on my exam. 04/27/17 10:55 CBC, BMP 04/27/17 07:52 04/27/17 07:52 CMP Sodium 138 mmol/L (136-145) 04/27/17 07:52 Potassium 4.3 mmol/L (3.5-5.1) 04/27/17 07:52 Chloride 104 mmol/L (98-107) 04/27/17 07:52 Carbon Dioxide 29 mmol/L (21-32) 04/27/17 07:52 Anion Gap 5 (8-16) L 04/27/17 07:52 BUN 20 mg/dL (7-18) H 04/27/17 07:52 Creatinine 0.8 mg/dL (0.55-1.02) 04/27/17 07:52 Creat Clearance w eGFR > 60 (>60) 04/27/17 07:52 POC Glucometer 98.89655 UNITS (()) 04/27/17 07:22 Random Glucose 75 mg/dL (74-106) 04/27/17 07:52 Calcium 8.3 mg/dL (8.5-10.1) L 04/27/17 07:52 Total Bilirubin 0.5 mg/dL (0.2-1.0) 04/27/17 07:52 AST 15 U/L (15-37) 04/27/17 07:52 ALT 13 U/L (12-78) 04/27/17 07:52 Alkaline Phosphatase 48 U/L (45-117) 04/27/17 07:52 Creatine Kinase 26 IU/L (26-192) 04/27/17 07:52 Troponin I 0.03 ng/ml (0.00-0.05) 04/27/17 07:52 Total Protein 6.3 g/dl (6.4-8.2) L 04/27/17 07:52 Albumin 2.5 g/dl (3.4-5.0) L 04/27/17 07:52 Urine Test Results Urine Color Yellow 04/27/17 10:00 Urine Appearance Turbid 04/27/17 10:00 Urine pH 5.0 (5.0-8.0) 04/27/17 10:00 Urine Protein 1+ (NEGATIVE) H 04/27/17 10:00 Urine Glucose (UA) Negative (NEGATIVE) 04/27/17 10:00 Urine Ketones Trace (NEGATIVE) H 04/27/17 10:00 Urine Blood Negative (NEGATIVE) 04/27/17 10:00 Urine Nitrite Positive (NEGATIVE) 04/27/17 10:00 Urine Bilirubin Negative (NEGATIVE) 04/27/17 10:00 Urine RBC 25 /hpf (0-3) 04/27/17 10:00 Urine WBC 3493 /hpf (3-5) 04/27/17 10:00 Ur Epithelial Cells Many /hpf (FEW) 04/27/17 10:00 Urine Bacteria Many /hpf (NONE SEEN) 04/27/17 10:00 Pt with UTI. Labs reassuring Pt tolerating juice. Has been alert. I had spoken with Dr. Arreaga. She wants to see her next week. Requests that while she is on cephalexin (sensitive according to the microbiology) that she should cut the long acting insulin in half. Pt's daughter and son and patient is agreeable to plan. I discussed the physical exam findings, ancillary test results and final diagnoses with the patient. I answered all of the patient's questions. The patient was satisfied with the care received and felt comfortable with the discharge plan and treatment plan. The patient will call their primary care physician within 24 hours to arrange follow-up and will return to the Emergency Department with any new, persistant or worsening symptoms. <Kirill Lindsay - Last Filed: 04/27/17 11:02> *DC/Admit/Observation/Transfer - Attestations Scribe Attestion: 04/27/17 08: Documentation prepared by FORD Thayer, acting as medical biller coder for Kirill Lindsay MD. <Nataliya Barbosa - Last Filed: 04/27/17 10:50> - Discharge Dispostion Admit: No <Kirill Lindsay - Last Filed: 04/27/17 11:02> Diagnosis at time of Disposition: Hypoglycemia UTI (urinary tract infection) Qualifiers: Urinary tract infection type: site unspecified Hematuria presence: without hematuria Qualified Code(s): N39.0 - Urinary tract infection, site not specified - Discharge Dispostion Disposition: INTERMEDIATE FACILITY Condition at time of disposition: Stable - Prescriptions Prescriptions: Cephalexin [Keflex] 500 mg PO BID #14 capsule - Referrals Referrals: Dallas Arreaga MD [Staff Physician] - - Patient Instructions Printed Discharge Instructions: DI for Urinary Tract Infection (UTI), DI for Hypoglycemia Additional Instructions: You have an urine infection. Please take 500 mg keflex (cephalexin) every 12 hours for 1 week. It is important that you finish this medication. Your sugar likely dropped because of the urine infection. I had spoken to Dr. Elina Arreaga. Please cut your glargine insulin from 30 units daily to [address] Androne changes it back. Please follow up with Dr. Arreaga next week.
[2017-04-27 07:45] VITALS: PULSE 64; BMI 26.4
[2017-04-27 08:16] LABS: BASOPHIL 0.6 % (0-2.0); EOSINOPHIL 1.4 % (0-4.5); MCH 34.2 pg (25.7-33.7); MCHC 33.7 g/dl (32.0-36.0); MEAN CELL VOLUME 101.7 fl (80-96); MEAN PLT VOLUME 7.4 fl (7.5-11.1); NEUTROPHILS 79.3 % (42.8-82.8); PLATELET COUNT 207 K/MM3 (134-434); RDW 14.1 % (11.6-15.6); WHITE BLOOD COUNT 8.4 K/mm3 (4.0-10.0)
[2017-04-27 08:34] LABS: ALBUMIN 2.5 g/dl (3.4-5.0); ANION GAP 5 (8-16); BILIRUBIN,TOTAL 0.5 mg/dL (0.2-1.0); CALCIUM 8.3 mg/dL (8.5-10.1); CO2 29 mmol/L (21-32); CPK 26 IU/L (26-192); CREATININE 0.8 mg/dL (0.55-1.02); GLUCOSE,RANDOM 75 mg/dL (74-106); SGOT/AST 15 U/L (15-37); SGPT/ALT 13 U/L (12-78); TOT PROT 6.3 g/dl (6.4-8.2)
[2017-04-27 08:37] LABS: ALK PHOS 48 U/L (45-117); TROPONIN I 0.03 ng/ml (0.00-0.05)
[2017-04-27 10:15] LABS: URINE APPEARANCE TURBID; URINE BILIRUBIN NEGATIVE (NEGATIVE); URINE BLOOD NEGATIVE (NEGATIVE); URINE COLOR YELLOW; URINE GLUCOSE (UA) NEGATIVE (NEGATIVE); URINE KETONE TRACE (NEGATIVE); URINE NITRITE POSITIVE (NEGATIVE); URINE UROBILINOGEN NEGATIVE mg/dL (0.2-1.0)
[2017-04-27 10:23] LABS: URINE LEUK ESTERASE 3+ (NEGATIVE); URINE PROTEIN 1+ (NEGATIVE)
[2017-04-27 10:51] LABS: URINE BACTERIA MANY /hpf (NONE SEEN); URINE RBC 25 /hpf (0-3); URINE WBC 3493 /hpf (3-5); YEAST FEW
[2017-04-27] MEDS ORDERED: CEPHALEXIN 250 MG/5 ML ORAL SUSPENSION PO ONE (10:52)
[2017-04-27 13:34] VITALS: BP 120/64; TEMP 98.2
--- NOTE | 2017-04-27 20:00 | EKG ---
Test Reason : Blood Pressure : / mmHG Vent. Rate : 056 BPM Atrial Rate : 056 BPM P-R Int : 128 ms QRS Dur : 108 ms QT Int : 462 ms P-R-T Axes : 045 -50 097 degrees QTc Int : 445 ms SINUS BRADYCARDIA WITH PROBABLE NONCONDUCTED ATRIAL PREMATURE BEATS. 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 REPEAT EKG INDICATED Confirmed by SNOW BRADFORD MD ([id number]) on 04/27/2017 8:00:41 PM Referred By: Confirmed By:SNOW BRADFORD MD
== END 2017-04-27 12:34 ==
LOC: JER 07:05
DX: E11.649 Type 2 diabetes mellitus with hypoglycemia without coma (principal); Z79.4 Long term (current) use of insulin; N39.0 Urinary tract infection, site not specified; I25.810 Atherosclerosis of coronary artery bypass graft(s) without angina pectoris; I10 Essential (primary) hypertension; Z95.1 Presence of aortocoronary bypass graft; E78.00 Pure hypercholesterolemia, unspecified
CPT/HCPCS: 36415; 80053; 81003; 81015; 84484; 85025; 87086; 87186; 93005; 93010; 99283-25

== ENCOUNTER 2017-07-22 06:35 | Emergency (ER) | payer OTHER, BC ==
[2017-07-22 06:45] VITALS: BMI 25.8
[2017-07-22 07:28] LABS: BASO % 0.5 % (0-2.0); EOS # 0.1 #; EOS % 0.9 % (0-4.5); LYMPH # 1.2; MCH 32.6 pg (25.7-33.7); MCHC 32.7 g/dl (32.0-36.0); MEAN CELL VOLUME 99.7 fl (80-96); MEAN PLT VOLUME 7.6 fl (7.5-11.1); MONO # 0.3 #; NEUT # 4.7 #; NEUT % 74.2 % (42.8-82.8); PLATELET COUNT 215 K/MM3 (134-434); RDW 14.5 % (11.6-15.6); WHITE BLOOD COUNT 6.3 K/mm3 (4.0-10.0)
--- NOTE | 2017-07-22 07:50 | PDOC ---
History of Present Illness - General Chief Complaint: Blood Sugar Problem Stated Complaint: BLOOD SUGAR PROBLEM Time Seen by Provider: 07/22/17 07:38 History Source: EMS Exam Limitations: Dementia - History of Present Illness Initial Comments: This is an 89 YOF with h/o dementia, IDDM, subacute C2 fracture, herpes zoster, CABG, HTN, HLD, breast CA, MDD, and recurrent UTI who is BIBA for hypoglycemia at her [facility], now improved after 10 of glucagon. EMS notes that her initial BG was measured to be 38 and after glucagon is was 111. She arrives with HR was 61 , PO2 was 99% on RA, BP was 136/95m BG was 97 on last measurement. The patient is unable to provide any of her medical history 2/2 dementia (patient is oriented only to her name and the city). On review of her prior [facility] ED records , she was seen here for the same complaint earlier this year and was found to have a UTI at the time. She takes 30 U Glargine qAM, Novolog SS. Past History - Past Medical History Allergies/Adverse Reactions: Allergies Allergy/AdvReac Type Severity Reaction Status Date / Time No Known Drug Allergies Allergy Verified 07/22/17 06:41 Home Medications: Ambulatory Orders Acetaminophen [Tylenol] 650 mg PO DAILY PRN #120 tab 03/23/17 Aspirin [ASA -] 81 mg PO DAILY #90 tablet 03/23/17 Atorvastatin Ca [Lipitor] 20 mg PO HS #90 tab 03/23/17 B-Complex with Vitamin C [Super B Complex-Vitamin C] 1 each PO DAILY #90 tab Buspirone HCl [Buspar -] 5 mg PO BID #180 tab 03/23/17 Calcium (Oyster Shell) [Os-Greg 500MG -] 250 mg PO BID #180 tablet 03/23/17 Divalproex [Depakote -] 250 mg PO BID #180 tab 03/23/17 Ergocalciferol (Vitamin D2) [Vitamin D2] 50,000 unit PO WEEKLY #12 tab 03/23/17 Escitalopram Oxalate [Lexapro -] 10 mg PO DAILY #90 tab 03/23/17 Furosemide 20 mg PO DAILY #90 tab 03/23/17 Hydralazine HCl [Apresoline -] 100 mg PO BID #180 tablet 03/23/17 Hydroxyzine HCl [Atarax -] 12.5 mg PO BID PRN #90 tab 03/23/17 Insulin Glargine,Hum.rec.anlog [Toujeo Solostar] 30 unit SQ AM #1 bottle Insulin Sliding Scale [Novolog Vial Sliding Scale -] 1 vial SQ ACHS units 03/23 Nebivolol [Bystolic -] 5 mg PO DAILY #90 tab 03/23/17 Tamoxifen Citrate 20 mg PO DAILY #90 tablet 03/23/17 Cephalexin [Keflex] 500 mg PO BID #14 capsule 04/27/17 Cephalexin [Keflex] 500 mg PO BID #14 capsule 04/27/17 Anemia: No Asthma: No Cancer: Yes (left breast) Cardiac Disorders: Yes (bypass sx) CVA: No COPD: No CHF: No Dementia: No Diabetes: Yes GI Disorders: No Disorders: No HTN: Yes Hypercholesterolemia: Yes Liver Disease: No Seizures: No Thyroid Disease: No - Surgical History Abdominal Surgery: No Appendectomy: No Cardiac Surgery: Yes (BYPASS) Cholecystectomy: No Lung Surgery: No Neurologic Surgery: No Orthopedic Surgery: Yes (L KNEE REPLACEMENT) - Suicide/Smoking/Psychosocial Hx Smoking Status: No Smoking History: Never smoked Have you smoked in the past 12 months: No Number of Cigarettes Smoked Daily: 0 Information on smoking cessation initiated: No Hx Alcohol Use: No Drug/Substance Use Hx: No Substance Use Type: None Hx Substance Use Treatment: No Review of Systems - Review of Systems Able to Perform ROS?: No (Dementia) *Physical Exam - Vital Signs Last Vital Signs Temp Pulse Resp BP Pulse Ox 97.8 F 61 16 136/95 99 07/22/17 07:28 07/22/17 07:28 07/22/17 07:28 07/22/17 07:28 07/22/17 07:28 - Physical Exam General Appearance: Yes: Nourished, Appropriately Dressed, Other (very pleasantly demented elderly woman). No: Apparent Distress ED Treatment Course - LABORATORY CBC & Chemistry Diagram: 07/22/17 06:46 07/22/17 06:46 Medical Decision Making - Medical Decision Making 89 YOF with h/o IDDM, HTN, HLD, UTI who presents with hypoglycemia now resolved with glucose. Similar prior visit here at the ED and had a UTI on UA at that visit. On exam VS wnl and the patient is in no distress, pleasant dementia, mild R>L eye discharge, otherwise exam wnl. DDX IBNLT 07/22/17 09:30 CBCD and CMP result non-directive. 07/22/17 11:03 BNP results at 1223 (patient has been in the 2000s before recently). She has no SOB or gallop on auscultation, has only pitting edema, already on Lasix. 07/22/17 11:08 Called Lab, they will not be running the micro on the UA, UA is negative for UTI. Will arrange transport back to [facility]. Spoke with Dr. Arreaga (Pt's PCP) who recommends going down on her dose of antihyperglycemic. *DC/Admit/Observation/Transfer Diagnosis at time of Disposition: Hypoglycemia - Discharge Dispostion Disposition: [facility] Condition at time of disposition: Stable Admit: No - Referrals Referrals: Elina Arreaga [Primary Care Provider] - - Patient Instructions Additional Instructions: Ms. Reid was seen in the ER for hypoglycemia which resolved with glucagon. We did basic bloodwork and urine tests and there was no evidence of infection or other pathology which may have caused this. The chest x-ray also did not show anything new. Please follow up with Dr. Arreaga to discuss the possibility of changing her insulin dosing. Please return to the ED for any new or worsening symptoms, or any recurrence of the hypoglycemia. - Post Discharge Activity
[2017-07-22 07:55] LABS: ALBUMIN 2.5 g/dl (3.4-5.0); ANION GAP 5 (8-16); BILIRUBIN,TOTAL 0.3 mg/dL (0.2-1.0); CALCIUM 7.7 mg/dL (8.5-10.1); CO2 31 mmol/L (21-32); GLUCOSE,RANDOM 114 mg/dL (74-106); SGOT/AST 14 U/L (15-37); SGPT/ALT 13 U/L (12-78); TOT PROT 6.2 g/dl (6.4-8.2)
[2017-07-22 07:56] LABS: ALK PHOS 101 U/L (45-117)
--- NOTE | 2017-07-22 09:19 | PDOC ---
Attending Attestation - HPI HPI: 07/22/17 09:19 Pt is a 89 yo F resident (poor historian) from [facility] living with a PMHx of dementia, IDDM, HTN, HLD, CAD s/p CABG, CHF, recurrent UTIs who presents to the ED with low blood glucose. As per EMS, patient was found to have blood glucose of 38 and was given glucagon in feild. Patients glucose came to 111 in field. Patient is unable to recall the incident however presents to the ED for further evaluation. Patient denies any pain. PCP: Dr. Elina Arreaga - Physicial Exam PE: 07/22/17 09:19 GENERAL: Awake, alert, and fully oriented x1. In no acute distress. HEAD: No signs of trauma EYES: PERRLA, EOMI, sclera anicteric, conjunctiva clear ENT: Auricles normal inspection, hearing grossly normal, nares patent, oropharynx clear without exudates. Moist mucosa NECK: Normal ROM, supple, no lymphadenopathy, JVD, or masses LUNGS: Breath sounds equal, clear to auscultation bilaterally. No wheezes, and no crackles HEART: Regular rate and rhythm, normal S1 and S2, no murmurs, rubs or gallops ABDOMEN: Soft, nontender, normoactive bowel sounds. No guarding, no rebound. No masses EXTREMITIES: Normal range of motion, No clubbing or cyanosis. No cords, erythema, or tenderness. +2 pitting edema bilaterally. NEUROLOGICAL: Cranial nerves II through XII grossly intact. Normal speech, normal gait SKIN: Warm, Dry, normal turgor, no rashes or lesions noted. - Medical Decision Making 07/22/17 09:19 Documentation prepared by Lesli Pollard, acting as expert medical writer for Kirill Lindsay MD, MD/DO. <Lesli Pollard - Last Filed: 07/22/17 09:19> - Resident Resident Name: Mireille Bonilla - ED Attending Attestation I have performed the following: I have examined & evaluated the patient, The case was reviewed & discussed with the resident, I agree w/resident's findings & plan, Exceptions are as noted - Medical Decision Making 07/22/17 09:19 A portion of this note was written by my scribe, under my supervision. 89-year-old female with past medical history of diabetes, hypertension, hyperlipidemia, coronary disease status post CABG, chronic urinary tract infections presents from living assisted facility for glucose of 38. Patient has no complaints. Patient denies any symptoms and does not recall any events. Patient does have dementia and is at baseline at [facility]. The patient was here back in April to the with similar complaint was found of urinary tract infection. We'll obtain blood work and urinalysis and observe the patient. If workup is unremarkable for the patient's GI tract infection, we will treat the symptoms and give antibiotics and touch base with patient's primary care physician. 07/22/17 11:05 CBC, BMP 07/22/17 06:46 07/22/17 06:46 CMP Sodium 140 mmol/L (136-145) 07/22/17 06:46 Potassium 4.0 mmol/L (3.5-5.1) 07/22/17 06:46 Chloride 104 mmol/L (98-107) 07/22/17 06:46 Carbon Dioxide 31 mmol/L (21-32) 07/22/17 06:46 Anion Gap 5 (8-16) L 07/22/17 06:46 BUN 23 mg/dL (7-18) H 07/22/17 06:46 Creatinine 1.0 mg/dL (0.55-1.02) D 07/22/17 06:46 Creat Clearance w eGFR 52.20 (>60) 07/22/17 06:46 POC Glucometer 95.50419 UNITS (80-120) 07/22/17 09:33 Random Glucose 114 mg/dL (74-106) H D 07/22/17 06:46 Calcium 7.7 mg/dL (8.5-10.1) L 07/22/17 06:46 Total Bilirubin 0.3 mg/dL (0.2-1.0) D 07/22/17 06:46 AST 14 U/L (15-37) L 07/22/17 06:46 ALT 13 U/L (12-78) 07/22/17 06:46 Alkaline Phosphatase 101 U/L (45-117) D 07/22/17 06:46 Creatine Kinase 35 IU/L (26-192) 07/22/17 09:30 Troponin I 0.02 ng/ml (0.00-0.05) 07/22/17 09:30 B-Natriuretic Peptide 1223.49 pg/ml (5-450) H 07/22/17 09:30 Total Protein 6.2 g/dl (6.4-8.2) L 07/22/17 06:46 Albumin 2.5 g/dl (3.4-5.0) L 07/22/17 06:46 Urine Test Results Urine Color Ltyellow 07/22/17 09:46 Urine Appearance Clear 07/22/17 09:46 Urine pH 6.0 (5.0-8.0) 07/22/17 09:46 Ur Specific [place] 1.011 (1.001-1.035) 07/22/17 09:46 Urine Protein Negative (NEGATIVE) 07/22/17 09:46 Urine Glucose (UA) Negative (NEGATIVE) 07/22/17 09:46 Urine Ketones Negative (NEGATIVE) 07/22/17 09:46 Urine Blood Negative (NEGATIVE) 07/22/17 09:46 Urine Nitrite Negative (NEGATIVE) 07/22/17 09:46 Urine Bilirubin Negative (NEGATIVE) 07/22/17 09:46 If leukocyte esterase is negative, will send patient back to senior care. Dr. Bonilla had touch base with Dr. Elina Arreaga who agrees with plan. <Kirill Lindsay - Last Filed: 07/22/17 11:06> Heart Score/ECG Review #1 ECG reviewed & interpreted by me at: 07:40 07/22/17 10:15 NSR 60, no std/summer, left axis deviation, QTC 462 msec, T wave flat I, avL <Kirill Lindsay - Last Filed: 07/22/17 11:06>
[2017-07-22 09:58] VITALS: BP 134/78; PULSE 68; TEMP 97.6
[2017-07-22 10:06] LABS: TROPONIN I 0.02 ng/ml (0.00-0.05)
[2017-07-22 11:00] LABS: URINE APPEARANCE CLEAR; URINE BILIRUBIN NEGATIVE (NEGATIVE); URINE BLOOD NEGATIVE (NEGATIVE); URINE COLOR LTYELLOW; URINE GLUCOSE (UA) NEGATIVE (NEGATIVE); URINE KETONE NEGATIVE (NEGATIVE); URINE LEUK ESTERASE NEGATIVE (NEGATIVE); URINE NITRITE NEGATIVE (NEGATIVE); URINE PROTEIN NEGATIVE (NEGATIVE); URINE UROBILINOGEN NEGATIVE mg/dL (0.2-1.0)
--- NOTE | 2017-07-22 12:30 | EKG ---
Test Reason : Blood Pressure : / mmHG Vent. Rate : 060 BPM Atrial Rate : 060 BPM P-R Int : 128 ms QRS Dur : 102 ms QT Int : 462 ms P-R-T Axes : 054 -44 086 degrees QTc Int : 462 ms NORMAL SINUS RHYTHM LEFT AXIS DEVIATION ABNORMAL ECG WHEN COMPARED WITH ECG OF 27-APR-2017 07:16, NO SIGNIFICANT CHANGE WAS FOUND Confirmed by GIOVANI MARQUEZ MD ([id number]) on 07/22/2017 12:30:15 PM Referred By: Confirmed By:GIOVANI MARQUEZ MD
[2017-07-22 18:55] LABS: URINE LEUK ESTERASE Negative (NEGATIVE)
== END 2017-07-22 12:36 ==
LOC: JER 06:35
DX: E11.649 Type 2 diabetes mellitus with hypoglycemia without coma (principal); Z79.4 Long term (current) use of insulin; I10 Essential (primary) hypertension; E78.5 Hyperlipidemia, unspecified; F32.9 Major depressive disorder, single episode, unspecified; Z85.3 Personal history of malignant neoplasm of breast; B02.9 Zoster without complications; F03.90 Unspecified dementia, unspecified severity, without behavioral disturbance, psychotic disturbance, mood disturbance, and anxiety
CPT/HCPCS: 36415; 71020-TC; 80053; 81003; 82550; 83880; 84484; 85025; 87086; 93005; 93010; 99284-25